=== PATIENT | female | born 1965 | race Caucasian/White ===

== ENCOUNTER → 2019-07-22 | Outpatient (CLI) | payer OTHER, SELFPAY ==
[2019-07-22 13:23] VITALS: BMI 28.1
[2019-07-27 13:33] LABS: HPV APTIMA, High Risk Negative (Negative)
== END | disposition home or self-care (01) ==
PROVIDERS: Family Provider Internal Medicine; PCP Internal Medicine; Referring Provider Nurse Practitioner Women's Health; Visit Provider Nurse Practitioner Women's Health
DX: Z12.4 Encounter for screening for malignant neoplasm of cervix (principal)
CPT/HCPCS: 87624; 88175; G0145

== ENCOUNTER → 2019-08-01 | Outpatient (CLI) | payer OTHER, SELFPAY ==
[2019-07-22 13:23] VITALS: BMI 28.1
--- NOTE | 2019-08-01 13:42 | US_ITS ---
STUDY: Pelvic ultrasound complete CLINICAL: Female, 53 years old. Menorrhagia TECHNIQUE: Transabdominal real-time exam with lowry scale image documentation. Transvaginal ultrasound was utilized for better visualization of the uterus and ovaries. COMPARISON: None. FINDINGS: The uterus is anteverted and midline measuring 8.2 x 5.4 x 5.1 cm. There are no endometrial or myometrial masses. Normal endometrial thickness measuring 12 mm. There are no endometrial masses, and there is no fluid in the endometrial cavity. The endometrium is hyperechoic. Normal uterine cervix. The right ovary is a 2.3 x 2.3 x 1.3 cm and contains a 10 x 9 mm dominant follicle. Normal Doppler flow. No additional right adnexal masses. The left ovary is 2.5 x 1.4 x 1.7 cm and contains a 20 x 15 x 12 mm simple cyst or large dominant follicle. Normal Doppler flow. No additional left adnexal masses. There is no free fluid in the pelvis. Unremarkable distended urinary bladder with a volume of 537 mL. Polycystic ovary disease: No. US/Pelvic (Non ) IMPRESSION: Normal uterus. Normal right ovary with a 10 x 9 mm dominant follicle. Normal Doppler flow. Normal size of the left ovary with a 20 x 15 x 12 mm simple cyst or large dominant follicle. Normal Doppler flow. No additional adnexal masses or free fluid. Electronically Signed: Rosa Mckinney MD at 16:11 EDT , Service support ,
--- NOTE | 2019-08-01 13:42 | US_ITS ---
STUDY: Pelvic ultrasound complete CLINICAL: Female, 53 years old. Menorrhagia TECHNIQUE: Transabdominal real-time exam with lowry scale image documentation. Transvaginal ultrasound was utilized for better visualization of the uterus and ovaries. COMPARISON: None. FINDINGS: The uterus is anteverted and midline measuring 8.2 x 5.4 x 5.1 cm. There are no endometrial or myometrial masses. Normal endometrial thickness measuring 12 mm. There are no endometrial masses, and there is no fluid in the endometrial cavity. The endometrium is hyperechoic. Normal uterine cervix. The right ovary is a 2.3 x 2.3 x 1.3 cm and contains a 10 x 9 mm dominant follicle. Normal Doppler flow. No additional right adnexal masses. The left ovary is 2.5 x 1.4 x 1.7 cm and contains a 20 x 15 x 12 mm simple cyst or large dominant follicle. Normal Doppler flow. No additional left adnexal masses. There is no free fluid in the pelvis. Unremarkable distended urinary bladder with a volume of 537 mL. Polycystic ovary disease: No. US/Transvaginal Non- IMPRESSION: Normal uterus. Normal right ovary with a 10 x 9 mm dominant follicle. Normal Doppler flow. Normal size of the left ovary with a 20 x 15 x 12 mm simple cyst or large dominant follicle. Normal Doppler flow. No additional adnexal masses or free fluid. Electronically Signed: Rosa Mckinney MD at 16:11 EDT , Service support ,
== END | disposition home or self-care (01) ==
PROVIDERS: Family Provider Internal Medicine; PCP Internal Medicine; Referring Provider Nurse Practitioner Women's Health; Visit Provider Nurse Practitioner Women's Health
DX: N92.0 Excessive and frequent menstruation with regular cycle (principal)
CPT/HCPCS: 76830; 76856; 93976

== ENCOUNTER 2020-07-10 13:33 | Emergency (ER) | payer OTHER, SELFPAY ==
[2019-07-22 13:23] VITALS: BMI 28.1
[2020-07-10 13:36] VITALS: BP 117/75; PULSE 80; RESP 16; TEMP 36.4; O2SAT 97; BMI 29.6
--- NOTE | 2020-07-10 13:42 | ED.VIS.GEN ---
History of Present Illness Chief Complaint: Seizure Narrative: 54-year-old female with past medical history of hypertension presents after an episode of syncope. She states she gave some blood today at the blood bank and walked across the street to get some groceries. W states that she stood in line for 10 minutes and just as she started to load her groceries onto the belt she started to feel lightheaded. She we will to walk over to a chair and sit down. At this point she asked for a drink of water and just before she could have it she lost consciousness reportedly about a minute. She had some mild shaking and bystanders thought that she had a seizure however she reports as soon as she opened her eyes she was alert and awake and asked for cell phone to call her . She remembers distinctly bystander saying we already called EMS as soon as she opened her eyes. She did not have any wounds. States that she did not fall or hit her head. She has some mild nausea but otherwise feels well. She states that she did eat a full meal prior to giving blood today. - Past Medical History (1) Hypertension Status: Chronic Past Medical History - Allergies and Home Meds Allergies/Adverse Reactions: Allergies No Known Allergies Allergy (Verified 07/22/19 13:11) Primary Care Physician: Fiona Castillo MD [Primary Care Provider] - Past Medical History: - - Hypertension Surgical History: noncontributory Lives: Spouse/ Significant Other Smoking Status: Never smoker Alcohol: None Drugs: None Review of Systems General: Reports: - - One episode of syncope. Denies: Chills, Fever, Sweats Eyes: Denies: Visual changes - bilaterally, Diplopia ENT: Denies: Rhinorrhea, Sore throat Cardiovascular: Denies: Chest pain, Palpitations Respiratory: Denies: Dyspnea, Cough, Dyspnea on exertion Gastrointestinal: Denies: Abdominal pain, Nausea, Vomiting, Diarrhea, Melena, Hematochezia Genitourinary: Denies: Dysuria, Hematuria, Frequency Musculoskeletal: Denies: Back pain, Extremity Pain Skin: Denies: Rash, Wounds Neurological: Denies: Headache, Weakness, Numbness Physical Exam Vital Signs/Narrative: Vital Signs Temp Pulse Resp BP Pulse Ox 07/10/20 13:36 97.5 F L 80 16 117/75 97 Inital Vital Signs reviewed: Yes General: Well nourished, Well developed, No Acute Distress Head: Normocephalic, Atraumatic Eyes: Perrl, EOMI ENT: Moist mucous membranes, No rhinorrhea Cardiovascular: Regular rate, Regular rhythm Respiratory: No distress, CTA bilaterally Abdomen: Soft, Nontender Back: Nontender, Normal Inspection Extremities: Nontender, No edema Skin: Normal color, No rash, Cyanosis Neurological: Alert, Oriented x3, Cranial nerves II-XII grossly intact Psychological: Normal affect, Normal Mood Diagnostic/Tx/Re-eval - Rhythm Strip Rhythm Strip: Sinus Rhythm Rate: 75 - EKG Initial EKG Interpretation: Sinus Rhythm, No Acute Injury Pattern - Medical Decision Making 54-year-old female presenting after episode of syncope which occurred earlier. She was given 500 mL of IV fluids well as Zofran and she felt improved. She was able to get up and ambulate around the room as well as bending over to off and put on her shoes without difficulty. She has no new symptoms of lightheadedness or dizziness. Her lab work shows that she is slightly anemic from her previous labs a couple of years ago. I suspect this is from giving blood today. I feel the patient is stable to be discharged home at this time and I have no concern for seizure. I did recommend she follow-up with her PCP for follow-up. If she has any new or worsening symptoms she is to return to the ED. Impression #1 anemia #2 syncope ED Disposition - Plan for ED Patient: Disposition: Home or Assisted Living Instructions: Causes of Syncope, Anemia Referrals: Fiona Castillo MD [Primary Care Provider] -
[2020-07-10 13:50] VITALS: BP 129/79
--- NOTE | 2020-07-10 13:53 | EKG12_ITS ---
Test Reason : Blood Pressure : / mmHG Vent. Rate : 075 BPM Atrial Rate : 075 BPM P-R Int : 134 ms QRS Dur : 078 ms QT Int : 360 ms P-R-T Axes : 032 029 038 degrees QTc Int : 402 ms Normal sinus rhythm with sinus arrhythmia Nonspecific ST and T wave abnormality Abnormal ECG Confirmed by PARVEEN TORO, JOMAR ([id number]), multimedia editor JAIME PEOPLES ([id number]) on 07/14/2020 11:30:40 AM Referred By: SYDNI Confirmed By:JOMAR SAINI MD
[2020-07-10] MEDS: Ondansetron 4 MG/2 ML Vial IV (14:35)
[2020-07-10 14:58] LABS: Absolute Lymphocyte Count 2.05 X10^3/uL (0.83-4.51); Absolute Neutrophil Count 6.5 X10^3/uL (2.0-7.7); Basophil# 0.02 X10^3/uL; Basophil% 0.2 % (0-1); Eosinophil# 0.07 X10^3/uL; Eosinophils% 0.8 % (0-5); Hematocrit 34.5 % (37-47); Hemoglobin 10.8 g/dL (12.0-15.0); Lymphocyte # 2.05 X10^3/ul (4.0); Mean Corp Hgb Conc 31.3 g/dL (32-36); Mean Corpuscular Hgb 25.6 pg (27.0-32.0); Mean Corpuscular Volume 81.8 fL (81-99); Mean Platelet Vol. 8.5 fl (6.2-12.0); Monocyte# 0.65 X10^3/uL; NRBC Flagged by Analyzer 0 % (0-5); Neutrophil % 69.8 % (47-70); Platelet Count 348 K/mm3 (150-450); RBC Distribution Width CV 14.4 % (11.6-14.6); RBC Distribution Width SD 42.8 fl (35.1-43.9); Red Blood Count 4.22 M/mm3 (4.2-5.4); White Blood Count 9.3 K/mm3 (4.4-11.0)
[2020-07-10 15:22] LABS: Anion Gap 4 (5-15); BUN 14 mg/dL (7-18); BUN/Creat Ratio 19.5 RATIO (10-20); Chloride 109 mmol/L (98-107); Creatinine, Serum 0.72 mg/dL (0.55-1.02); EST Glomerular Filtration Rate 90 mL/min (>60); Est Glom Filt Rate - Afr Amer 109 mL/min (>60); Estimated Creatinine Clearance 87.57 ml/min; Glucose 91 mg/dL (74-106); Potassium 4.2 mmol/L (3.5-5.1); Sodium Level 139 mmol/L (136-145)
[2020-07-10 15:57] VITALS: BP 140/94; PULSE 79; RESP 16; O2SAT 97
== END 2020-07-10 15:58 | disposition home or self-care (01) ==
PROVIDERS: Emergency Provider Student in an Organized Health Care Education/Training Program; PCP Internal Medicine
DX: R55 Syncope and collapse (principal); D64.9 Anemia, unspecified; I10 Essential (primary) hypertension; Z79.899 Other long term (current) drug therapy
CPT/HCPCS: 80048; 84484; 85025; 93005; 96361; 96374; 99285; J7030; J2405

== ENCOUNTER 2021-01-11 14:54 | Outpatient (RCR) | payer OTHER, SELFPAY ==
[2021-01-11] MEDS: COVID-19 VACC, MRNA(PFIZER)/PF 30 MCG/0.3 ML SYRINGE IM (17:23)
[2021-02-01] MEDS: COVID-19 VACC, MRNA(PFIZER)/PF 30 MCG/0.3 ML SYRINGE IM (17:05)
== END 2021-01-11 23:59 ==
LOC: IMMUN 14:54
PROVIDERS: PCP Internal Medicine; Referring Provider Family Medicine; Visit Provider Family Medicine
DX: Z23 Encounter for immunization (principal)
CPT/HCPCS: 0001A; 0002A; 91300

== ENCOUNTER 2023-10-01 16:54 | Emergency (ER) | payer OTHER, SELFPAY ==
[2023-10-01 16:55] VITALS: BP 141/99; PULSE 70; RESP 18; TEMP 35.7; O2SAT 95; BMI 30.6
--- NOTE | 2023-10-01 19:09 | EX.ED.DYSGE1 ---
HPI History of Present Illness Chief Complaint: Hypertension Informant: patient Narrative Narrative: Presents with concern for elevated blood pressure. Patient is a history of blood pressure. She takes her losartan. She has been taking this. She normally runs about 130?135 over 70s. This morning she woke up and when she first stood up she got just momentarily lightheaded. But this resolved. She is able to walk around. She is not vertiginous. No instability. No weakness. No stumbling. No dropping things. She also states that her stomach was just slightly upset. No chest pain. No trouble breathing. She has been eating and drinking fine. She is not having pain. She went to urgent care who recommended she come here because her systolic blood pressure was in the 170s. [facility] Medical History Hypertension Home Medications losartan 25 mg tablet 50 mg PO DAILY 07/22/19 [History Last Taken Unknown] Allergy/AdvReac Type Severity Reaction Status Date / Time No Known Allergies Allergy Verified 10/01/23 16:55 Family History Mother Hypertension Father Heart disease Social History Smoking Status: Never smoker alcohol intake: current details: occasionally substance use type: does not use caffeine: Yes what type of physical activity do you participate in: walking frequency: 3-4 times per week seatbelt use: always do you feel safe at home: Yes additional social history: [id number] at [employer] 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 Some specific details below. Constitutional: No recent fevers or chills. EYE: No discharge, visual complaints, or pain. ENT: No difficulty swallowing. No swelling. No pain. No reflux symptoms. CV: No chest pain palpitations. No syncope. She had transient lightheadedness when getting up quickly. Respiratory: Cough or trouble breathing. GI: No abdominal pain. Have mild indigestion in the epigastric area. But no nausea vomiting diarrhea. No blood in stool. Been eating and drinking normally. : No frequency dysuria or hematuria. Musculoskeletal: No recent trauma. No pains. No swelling. No back pain Skin: No rash. Nondiaphoretic. Neuro: No weakness or numbness. Endocrine: No polyuria or polydipsia. EXAM Physical Exam Narrative Exam Narrative: CONSTITUTIONAL: Patient is nontoxic in appearance. The patient looks comfortable. Work of breathing looks normal. HEENT: No notable trauma. Mucous membranes moist. No sinus tenderness. No indication of pain with swallowing. EYES: No conjunctival injection. No proptosis. Range of motion is normal. NECK:No JVD. No stridor. CARDIOVASCULAR: Regular rate. Regular rhythm. No notable murmur. No JVD. RESPIRATORY: No respiratory distress. Breathing is unlabored. No wheezes. No rhonchi. No rales. No pain with a deep breath. No chest wall tenderness. GASTROINTESTINAL: Not distended. Bowel sounds are normal. No tenderness loading none in the epigastric area but her symptoms are not really present now. No guarding. No rebound. No palpable mass. No bruit is heard. GENITOURINARY: No CVA tenderness. MUSCULOSKELETAL: Atraumatic. No peripheral edema. No cord. No tenderness along the deep venous system. No asymmetry. No distended veins. NEUROLOGICAL: Patient is alert and appropriate. No focal deficit noted. No discoordination. Speech is normal. SKIN: No noted rashes. No diaphoresis. PSYCHIATRIC: Patient is calm. Mood is appropriate. Const Vital Signs: 10/01/23 16:55 10/01/23 18:47 10/01/23 20:00 Temperature 96.3 F L Temperature Source Temporal Pulse Rate 70 Respiratory Rate 18 16 Respiratory Effort Normal Respiratory Pattern Normal Blood Pressure 141/99 H 172/100 H Blood Pressure Mean 113 124 Pulse Ox 95 97 Oxygen Delivery Method Room Air Room Air MDM MDM MDM Narrative Medical decision making narrative: Patient's electrolytes showed minimal elevation of chloride. Renal function is normal. No major abnormalities. Patient's blood pressure has been ranging anywhere from about 1 35-1 70 here. But none of this requires acute treatment. I think she is safe and appropriate for follow-up. She will keep track of some blood pressure and we will treat this based on the overall readings and she should follow-up with her primary. Lab Data Attestation: I reviewed the patient's lab results. Labs: Laboratory Results - last 24 hr 10/01/23 19:20 Sodium 140 Potassium 4.1 Chloride 108 H Carbon Dioxide 27.0 Anion Gap 5 BUN 10 Creatinine 0.72 Estim Creat Clear Calc 87.41 Est GFR (MDRD) Af Amer 107 Est GFR (MDRD) Non-Af 89 BUN/Creatinine Ratio 13.9 Glucose 94 Calcium 9.3 EKG Initial EKG: Comments: My independent interpretation of the EKG shows a normal sinus rhythm with overall rate of 61. No ventricular ectopy. No acute ST elevation or depression. CA interval, QRS duration and QTc are normal. Discharge Plan Triage Chief Complaint: Hypertension ED Provider: Rustam Jennings Dx/Rx/DC Orders Clinical Impression: Hypertension Instructions: ED Hypertension, Established Prescriptions: No Action losartan 25 mg tablet 50 mg PO DAILY Primary Care Provider: Fiona Castillo Referrals: Fiona Castillo MD [Primary Care Provider] - 3-5 Days Disposition Disposition: Home, Self Care
[2023-10-01 19:46] LABS: Anion Gap 5 (5-15); BUN 10 mg/dL (7-18); BUN/Creat Ratio 13.9 RATIO (10-20); Calcium,Total 9.3 mg/dL (8.5-10.1); Chloride 108 mmol/L (98-107); Creatinine, Serum 0.72 mg/dL (0.55-1.02); EST Glomerular Filtration Rate 89 mL/min (>60); Est Glom Filt Rate - Afr Amer 107 mL/min (>60); Estimated Creatinine Clearance 87.41 ml/min; Glucose 94 mg/dL (74-106); Potassium 4.1 mmol/L (3.5-5.1); Sodium Level 140 mmol/L (136-145)
[2023-10-01 20:00] VITALS: BP 172/100; RESP 16; O2SAT 97
== END 2023-10-01 21:41 | disposition home or self-care (01) ==
PROVIDERS: Emergency Provider Emergency Medicine; PCP Internal Medicine; Visit Provider Emergency Medicine
DX: I10 Essential (primary) hypertension (principal); Z79.899 Other long term (current) drug therapy
CPT/HCPCS: 80048; 93005; 99283; A4216

== ENCOUNTER → 2023-12-06 | Outpatient (CLI) | payer OTHER, SELFPAY ==
--- OUTSIDE RECORDS SUMMARY | 2023-12-06 20:04 | XMS RPT_ITS | CCD ---
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 Name Role Phone Fiona Rodriges MD Primary Care Provider [phone] PADILLA DIANNE Attending Unavailable GANTA, FIONA Primary Care Unavailable GANTA, FIONA Primary Care Unavailable GANTA, FIONA Attending Unavailable PADILLA, DIANNE Referring Unavailable BACKER, HINDU Referring Unavailable GANTA, FIONA Primary Care Unavailable MCGREAL, PIPPA Referring Unavailable GANTA, FIONA Primary Care Unavailable PADILLA, DIANNE Attending Unavailable GANTA, FIONA Primary Care Unavailable PADILLA, DIANNE Referring Unavailable PADILLA, DIANNE Attending Unavailable GANTA, FIONA Primary Care Unavailable Fiona Rodriges MD Primary Care Provider [phone] ATIF PEDROZA Attending Unavailable GANTA, FIONA Primary Care Unavailable GANTA, FIONA Primary Care Unavailable GANTA, FIONA Referring Unavailable GANTA, FIONA Primary Care Unavailable OLDER, ANNA Referring Unavailable GANTA, FIONA Primary Care Unavailable OLDER, ANNA Attending Unavailable GANTA, FIONA Primary Care Unavailable MAGDALENOPHRENE DELUNA Referring Unavailable GANTA, FIONA Primary Care Unavailable Allergies Allergy Classification Reported Allergen(s) Allergy Type Date of Onset Reaction(s) Facility (20 sources) Seasonal allergy; Translations: [SEASONAL ALLERGIES] Allergy to substance 7 Intolerance [facility] Work Phone: (20 sources) Bees; Translations: [BEES] Propensity to adverse reactions 6 Hives, Shortness of Breath [facility] Work Phone: (2 sources) [place] Propensity to adverse reactions 3 Anaphylaxis [facility] Medications Current Medications Medication Drug Class(es) Dates Sig (Normalized) Sig (Original) Calcium Carbonate-Vit D-Min (CALCIUM 1200 PO) (2 sources) Calcium Carbonate-Vit D-Min (CALCIUM 1200 PO) Take by mouth. 0 Active Multiple Vitamin (multivitamin) capsule (2 sources) take 1 capsule by mo ut once daily Multiple Vitamin (multivitamin) capsule Take 1 capsule by mouth daily. 0 Active Completed/Discontinued Medications Medication Drug Class(es) Dates Sig (Normalized) Sig (Original) Calcium Carbonate / vitamin D3 (20 sources) calcium carbonate/vitamin D3 (CALCIUM 500 + D ORAL) Take by mouth. 0 Active Problems Active Problems Problem Classification Problem Date Documented Date Episodic/Chronic Acquired foot deformities (1 source) Toe joint rigid; Translations: [Hallux rigidus, left foot] Chronic Conditions associated with dizziness or vertigo (4 sources) Dizzy spells; Translations: [Dizziness and giddiness] Onset: 10-04-2023 Episodic Essential hypertension (20 sources) Essential hypertension; Translations: [Essential (primary) hypertension] Onset: 10-30-2014 Chronic Immunizations and screening for infectious disease (3 sources) Suspected disease caused by 2019-nCoV; Translations: [Suspected COVID-19 virus infection] Episodic Osteoarthritis (4 sources) Osteoarthritis of first carpometacarpal joint of right hand; Translations: [Unilateral primary osteoarthritis of first carpometacarpal joint, right hand] Onset: 01-01-2023 Chronic Other connective tissue disease (2 sources) Pain in left foot; Translations: [Pain in left foot] Episodic Other connective tissue disease (2 sources) Pain of bilateral hands; Translations: [Pain in right hand] Episodic Other lower respiratory disease (1 source) Snoring; Translations: [Snoring] 10-04-2023 Episodic Other lower respiratory disease (1 source) Snoring; Translations: [Snoring] Onset: 10-11-2023 Episodic Other non-traumatic joint disorders (1 source) Chronic pain of right upper limb; Translations: [Pain in right shoulder] Episodic Other non-traumatic joint disorders (1 source) Pain in right hip joint; Translations: [Pain in right hip] Episodic Other non-traumatic joint disorders (1 source) Pain in left knee; Translations: [Pain in joint, lower leg] Episodic Other screening for suspected conditions (not mental disorders or infectious disease) (9 sources) Patient encounter status; Translations: [Encounter for screening mammogram for malignant neoplasm of breast] Onset: 06-11-2023 Episodic Other upper respiratory infections (2 sources) Pharyngitis; Translations: [Acute pharyngitis, unspecified] Episodic Prolapse of female genital organs (20 sources) Uterovaginal prolapse; Translations: [Uterovaginal prolapse, unspecified] Onset: 03-25-2015 03-25-2015 Chronic Residual codes; unclassified (1 source) Family history of diabetes mellitus; Translations: [Family history of diabetes mellitus] Episodic Past or Other Problems Problem Classification Problem Date Documented Da te Episodic/Chronic Other connective tissue disease (2 sources) Pain in right finger(s); Translations: [Pain in right finger(s)] Onset: 01-01-2023 Episodic Other connective tissue disease (2 sources) Pain in left finger(s); Translations: [Pain in left finger(s)] Onset: 01-01-2023 Episodic Other non-traumatic joint disorders (20 sources) Shoulder joint pain; Translations: [Pain in unspecified shoulder] Onset: 10-05-2014 10-05-2014 Episodic Other nutritional; endocrine; and metabolic disorders (20 sources) Weight gain; Translations: [Abnormal weight gain] Onset: 11-21-2019 11-21-2019 Episodic Results Test Name Value Interpretation Reference Range Facil ity Vital Signs Date Time Vital Sign Value Performing Clinician Coco boyle 10-04-2023 08:19-0500 Body weight 62.14 kg Anna Older YARDAGE TUFTING MACHINE OPERATOR.SEBASTIAN Work Phone: [facility] 10-04-2023 08:19-0500 Diastolic blood pressure 82 mm[Hg] Anna Older YARDAGE TUFTING MACHINE OPERATOR.SEBASTIAN Work Phone: [facility] 10-04-2023 08:19-0500 Heart rate 88 /min Anna Older YARDAGE TUFTING MACHINE OPERATOR.GUN BARREL FINISHER Work Phone: [facility] 10-04-2023 08:19-0500 Respiratory rate 16 /min Anna Older YARDAGE TUFTING MACHINE OPERATOR.SEBASTIAN Work Phone: [facility] 10-04-2023 08:19-0500 SaO2% (BldA) [Mass fraction] 99 % Anna Older YARDAGE TUFTING MACHINE OPERATOR.SEBASTIAN Work Phone: [facility] 10-04-2023 08:19-0500 Systolic blood pressure 128 mm[Hg] Anna Ferrari YARDAGE TUFTING MACHINE OPERATOR.GUN BARREL FINISHER Work Phone: [facility] 10-01-2023 16:34-0500 Diastolic blood pressure 100 mm[Hg] Maday Athy PA-C Work Phone: [facility] 10-01-2023 16:34-0500 Heart rate 76 /min Maday Athy PA-C Work Phone: [facility] 10-01-2023 16:34-0500 SaO2% (BldA) [Mass fraction] 97 % Maday Athy PA-C Work Phone: [facility] 10-01-2023 16:34-0500 Systolic blood pressure 172 mm[Hg] Maday Athy PA-C Work Phone: [facility] 07-06-2023 09:19-0400 Body height 147.3 cm Atif Pedroza MD Work Phone: [facility] 07-06-2023 09:19-0400 Body weight 61.6 kg Atif Pedroza MD Work Phone: [facility] 07-06-2023 09:19-0400 Diastolic blood pressure 86 mm[Hg] Atif Pedroza MD Work Phone: [facility] 07-06-2023 09:19-0400 Systolic blood pressure 142 mm[Hg] Atif Pedroza MD Work Phone: [facility] 07-05-2023 10:08-0400 Body temperature 97.2 [degF] Sherly Bennett YARDAGE TUFTING MACHINE OPERATOR.GUN BARREL FINISHER Work Phone: [facility] 07-05-2023 10:08-0400 Body weight 61.78 kg Sherly Bennett YARDAGE TUFTING MACHINE OPERATOR.GUN BARREL FINISHER Work Phone: [facility] 07-05-2023 10:08-0400 Diastolic blood pressure 88 mm[Hg] Sherly Bennett YARDAGE TUFTING MACHINE OPERATOR.GUN BARREL FINISHER Work Phone: [facility] 07-05-2023 10:08-0400 Heart rate 61 /min Sherly Bennett YARDAGE TUFTING MACHINE OPERATOR.GUN BARREL FINISHER Work Phone: [facility] 07-05-2023 10:08-0400 Respiratory rate 18 /min Sherly Bennett YARDAGE TUFTING MACHINE OPERATOR.GUN BARREL FINISHER Work Phone: [facility] 07-05-2023 10:08-0400 SaO2% (BldA) [Mass fraction] 98 % Sherly Bennett YARDAGE TUFTING MACHINE OPERATOR.GUN BARREL FINISHER Work Phone: [facility] 07-05-2023 10:08-0400 Systolic blood pressure 152 mm[Hg] Sherly Bennett YARDAGE TUFTING MACHINE OPERATOR.GUN BARREL FINISHER Work Phone: [facility] 11-13-2022 11:43-0500 Diastolic blood pressure 83 mm[Hg] Anna Older YARDAGE TUFTING MACHINE OPERATOR.GUN BARREL FINISHER Work Phone: [facility] 11-13-2022 11:43-0500 Systolic blood pressure 132 mm[Hg] Anna Older YARDAGE TUFTING MACHINE OPERATOR.GUN BARREL FINISHER Work Phone: [facility] 11-13-2022 11:00-0500 Body temperature 98.2 [degF] Anna Older YARDAGE TUFTING MACHINE OPERATOR.GUN BARREL FINISHER Work Phone: [facility] 11-13-2022 11:00-0500 Body weight 61.24 kg Anna Older YARDAGE TUFTING MACHINE OPERATOR.GUN BARREL FINISHER Work Phone: [facility] 11-13-2022 11:00-0500 Heart rate 76 /min Anna Older YARDAGE TUFTING MACHINE OPERATOR.GUN BARREL FINISHER Work Phone: [facility] 11-13-2022 11:00-0500 Respiratory rate 16 /min Anna Older YARDAGE TUFTING MACHINE OPERATOR.GUN BARREL FINISHER Work Phone: [facility] 11-13-2022 11:00-0500 SaO2% (BldA) [Mass fraction] 99 % Anna Older YARDAGE TUFTING MACHINE OPERATOR.GUN BARREL FINISHER Work Phone: [facility] 08-22-2022 16:28-0400 Body weight 60.33 kg Fiona Rodriges MD Work Phone: [facility] 08-22-2022 16:28-0400 Diastolic blood pressure 82 mm[Hg] Fiona Rodriges MD Work Phone: [facility] 08-22-2022 16:28-0400 Heart rate 65 /min Fiona Rodriges MD Work Phone: [facility] 08-22-2022 16:28-0400 SaO2% (BldA) [Mass fraction] 98 % Fiona Rodriges MD Work Phone: [facility] 08-22-2022 16:28-0400 Systolic blood pressure 124 mm[Hg] Fiona Rodriges MD Work Phone: [facility] 05-07-2022 12:51-0400 Body temperature 97 [degF] Sherly Bennett YARDAGE TUFTING MACHINE OPERATOR.GUN BARREL FINISHER Work Phone: [facility] 05-07-2022 12:51-0400 Body weight 60.33 kg Sherly Bennett YARDAGE TUFTING MACHINE OPERATOR.GUN BARREL FINISHER Work Phone: [facility] 05-07-2022 12:51-0400 Diastolic blood pressure 68 mm[Hg] Sherly Bennett YARDAGE TUFTING MACHINE OPERATOR.GUN BARREL FINISHER Work Phone: [facility] 05-07-2022 12:51-0400 Heart rate 94 /min Sherly Bennett YARDAGE TUFTING MACHINE OPERATOR.GUN BARREL FINISHER Work Phone: [facility] 05-07-2022 12:51-0400 Respiratory rate 16 /min Sherly Bennett YARDAGE TUFTING MACHINE OPERATOR.GUN BARREL FINISHER Work Phone: [facility] 05-07-2022 12:51-0400 SaO2% (BldA) [Mass fraction] 99 % Sherly Bennett YARDAGE TUFTING MACHINE OPERATOR.GUN BARREL FINISHER Work Phone: [facility] 05-07-2022 12:51-0400 Systolic blood pressure 108 mm[Hg] Sherly Bennett YARDAGE TUFTING MACHINE OPERATOR.GUN BARREL FINISHER Work Phone: [facility] 02-17-2022 16:16-0400 Body height 147.3 cm Fiona Rodriges MD Work Phone: [facility] 02-17-2022 16:16-0400 Body temperature 98.29 [degF] Fiona Rodriges MD Work Phone: [facility] 02-17-2022 16:16-0400 Body weight 59.42 kg Fiona Rodriges MD Work Phone: [facility] 02-17-2022 16:16-0400 Diastolic blood pressure 52 mm[Hg] Fiona Rodriges MD Work Phone: [facility] 02-17-2022 16:16-0400 Heart rate 83 /min Fiona Rodriges MD Work Phone: [facility] 02-17-2022 16:16-0400 Respiratory rate 12 /min Fiona Rodriges MD Work Phone: [facility] 02-17-2022 16:16-0400 SaO2% (BldA) [Mass fraction] 100 % Fiona Rodriges MD Work Phone: [facility] 02-17-2022 16:16-0400 Systolic blood pressure 98 mm[Hg] Fiona Rodriges MD Work Phone: [facility] Encounters Encounter Date Encounter Type Care Provider Facility Start: 10-11-2023 End: 10-13-2023 [facility] Facility:[facility] Start: 10-10-2023 [facility] Main Work Phone: Neurology Start: 10-04-2023 End: 10-05-2023 [facility] Facility:[facility] Start: 10-04-2023 Patient encounter procedure [facility] Start: 10-04-2023 End: 10-04-2023 Patient encounter procedure [facility] YARDAGE TUFTING MACHINE OPERATOR.GUN BARREL FINISHER Work Phone: Internal Medicine [place] Procedures Date Procedure Procedure Detail Performing Clinician Start: 07-05-2023 STREP A MOLECULAR (POC) Maday Loya PA-C Work Phone: Start: 06-11-2023 End: 06-11-2023 Mammography Bulk Order Provider Start: 05-23-2022 Radex foot complete minimum 3 views Viktor Dailey Work Phone: Start: 05-07-2022 STREP A MOLECULAR (POC) Sherly Bennett APRNLillyGUN BARREL FINISHER Work Phone: Start: 12-23-2021 Mammography Fiona jackson MD Work Phone: Start: 06-25-2019 Adult depression scr eening assessment Fiona Rodriges MD Work Phone: Start: 03-21-2019 Lipid 1996 panel - S patricia or Plasma Anna Older YARDAGE TUFTING MACHINE OPERATOR.GUN BARREL FINISHER Work Phone: Start: 05-18-2016 Colonoscopy Fiona jackson MD Work Phone: Plan of Treatment Date Care Activity Detail Author Start: 05-20-2031 DTaP/Tdap/Td Vaccine s (2 - Td or Tdap) DTaP/Tdap/Td Vaccines (2 - Td or Tdap) [facility] Start: 05-20-2031 Urine microalbumin profile [facility] Start: 05-18-2026 Colonoscopy COLONOSCOPY [facility] Start: 05-18-2026 COLORECTAL CANCER SCREENING COLORECTAL CANCER SCREENING [facility] Start: 05-18-2026 Screening for malign ant neoplasm of colon [facility] Start: 12-07-2025 HPV TESTING HPV TESTING [facility] Start: 12-07-2025 PAP TESTING PAP TESTING [facility] Start: 12-07-2025 Screening for malign ant neoplasm of cervix [facility] Start: 10-04-2024 Annual PCP Team Enamel Finisher taras Disease Visit Annual PCP Team Chronic Disease Visit [facility] Start: 06-11-2024 Mammography [facility] Start: 06-11-2024 Screening for malign ant neoplasm of breast Mammogram Screening [facility] Start: 03-21-2024 Lipid 1996 panel - S patricia or Plasma Lipid Screening [facility] Start: 03-21-2024 Lipid panel Lipid Screening [facility] Start: 03-21-2024 LIPID SCREEN LIPID SCREEN [facility] Start: 11-13-2023 ANNUAL PCP TEAM FILLER SHREDDER HELPER TARAS DISEASE VISIT ANNUAL PCP TEAM CHRONIC DISEASE VISIT [facility] Start: 11-13-2023 HEPATITIS C SCREENING HEPATITIS C OR ILEANA [facility] Immunizations Immunization Date Immunization Notes Care Provider Jignesh blankenship 09-12-2022 influenza, injectabl e, quadrivalent, contains preservative Anna Older YARDAGE TUFTING MACHINE OPERATOR.GUN BARREL FINISHER Work Phone: [facility] 09-12-2022 influenza virus vaccine, unspecified formulation Anna Older YARDAGE TUFTING MACHINE OPERATOR.GUN BARREL FINISHER Work Phone: [facility] 05-16-2022 zoster vaccine recombinant Fiona Rodriges MD Work Phone: [facility] 03-10-2022 zoster vaccine recombinant Fiona Rodriges MD Work Phone: [facility] 05-20-2021 tetanus toxoid, redu godwin diphtheria toxoid, and acellular pertussis vaccine, adsorbed Fiona Rodriges MD Work Phone: [facility] Work Phone: 02-01-2021 COVID-19 vaccine, ag e 12+ yr (PFIZER-BIONTECH - PURPLE TOP) Fiona Rodriges MD Work Phone: [facility] Work Phone: 01-11-2021 COVID-19 vaccine, ag e 12+ yr (PFIZER-BIONTECH - PURPLE TOP) Fiona Rodriges MD Work Phone: [facility] Work Phone: 11-21-2019 tetanus and diphther ia toxoids, adsorbed, preservative free, for adult use (5 Lf of tetanus toxoid and 2 Lf of diphtheria toxoid) Fiona Rodriges MD Work Phone: [facility] Work Phone: 09-02-2018 influenza, injectabl e, quadrivalent, contains preservative Fiona Rodriges MD Work Phone: [facility] Work Phone: 08-17-2014 influenza virus vaccine, unspecified formulation Fiona Rodriges MD Work Phone: [facility] 08-12-2009 influenza virus vaccine, unspecified formulation Fiona Rodriges MD Work Phone: [facility] 01-31-2006 tetanus and diphther ia toxoids, adsorbed, preservative free, for adult use (2 Lf of tetanus toxoid and 2 Lf of diphtheria toxoid) Fiona Rodriges MD Work Phone: [facility] 09-13-2005 influenza virus vaccine, unspecified formulation Fiona Rodriges MD Work Phone: [facility] Work Phone: Payers Date Payer Category Payer Private Health Insurance xxx [id number] 2011 Private Health Insurance [id number] 2011 Private Health Insurance [id number] Social History Date Type Detail Facility Start: 12-17-2012 End: 01-01-2023 Tobacco smoking status NHIS Never smoked tobacco [facility] Work Phone: Start: 02-17-2022 End: 10-04-2023 Alcohol intake Current non-drinker of alcohol (finding) [facility] Start: 09-30-2020 History SDOH Alcohol Frequency 1 [facility] Start: 09-30-2020 History SDOH Alcohol Std Drinks 98 [facility] Start: 09-30-2020 History SDOH Social Connections Phone 5 [facility] Start: 09-30-2020 History SDOH Social Connections Get Together 3 [facility] Start: 07-13-2020 History SDOH Physica l Activity DPW 6 [facility] Start: 09-30-2020 History SDOH Physica l Activity MPS 4 [facility] Start: 09-30-2020 History SDOH Transpo rt Med 2 [facility] Start: 07-13-2020 Education 18 [facility] Start: 1965 Sex Assigned At Female [facility] Start: 02-07-2022 End: 01-12-2023 Exposure to SARS-CoV-2 (event) Not sure [facility] Work Phone: Start: 04-26-2022 End: 05-06-2022 Exposure to SARS-CoV-2 (event) Yes [facility] Work Phone: Start: 12-17-2012 End: 01-01-2023 Tobacco use and exposure Smokeless tobacco non-user [facility] Work Phone: Start: 1965 Sex Assigned At Not on file S [facility] Start: 03-22-2023 End: 06-11-2023 History of Social function [facility] Start: 03-22-2023 End: 06-11-2023 Tobacco use panel [facility] Are you now , , , , never or living with a partner? [facility] How often to you hav e a drink containing alcohol? Never [facility] How many standard dr inks containing alcohol do you have on a typical day? Patient refused [facility] Do you feel stress - tense, restless, nervous, or anxious, or unable to sleep at night because your mind is troubled all the time - these days [OSQ] Not at all [facility] (I/We) worried wheth er (my/our) food would run out before (I/we) got money to buy more. Never true [facility] Work Phone: In the past 12 month s, was there a time when you were not able to pay the mortgage or rent on time? No [facility] Start: 09-30-2020 Gender identity Identifies as female gender (finding) [facility] Clinical Notes 05-18-2016 to 10-15-2023 Ruthie Coulter - 10/15/2023 2:21 PM Shukri Cantrell MD - 10/11/2023 9:43 AM Brijesh Donis - 10/10/2023 7:02 PM Brijesh Donis - 10/10/2023 7:01 PM ESTPatient Instructions Note Date & Type Note Facility 10-15-2023 Note HNO ID: [id number] Author: Ruthie Coulter Service: ? Author Type: ? Type: Progress Notes Filed: 10/15/2023 2:21 PM Note Text: Sleep Study Check-In Documentation Date: October 15, 2023 Name: Blank Bedoya Comments: HST was returned in working order with all sleep questionnaires Ruthie Coulter [facility] 10-15-2023 History of Presen t illness Narrative Sleep Study Check-In Documentation Date: October 15, 2023 Name: Blank Bedoya Comments: HST was returned in working order with all sleep questionnaires Ruthie Coulter October 11, 2023 Standing PSG Orders signed in the last 90 days None Future PSG Orders signed in the last 90 days Ordered Auth. provider HOME SLEEP APNEA TEST (HSAT) [[id number]] 10/04/23 Anna Ferrari APRN.GUN BARREL FINISHER Assoc. diagnoses: Essential hypertension [I10], Snoring [R06.83] Q: Indications: A: Obstructive sleep apnea Q: STOP-BANG conditions - Select All That Apply: A: AGE > 50 A2: high blood PRESSURE A3: SNORING that is loud or disruptive A4: TIREDNESS, fatigue or sleepiness during the day Q: Current use of supplemental oxygen during sleep period?: A: No All Prior Sleep Studies (past 365 days) Some values may be hidden. Unless noted otherwise, only the newest values recorded on each date are displayed. Sleep Studies HOME SLEEP APNEA TEST (HSAT) Future Expected: Expires: 10/03/24 BMI Readings from Last 2 Encounters: 10/04/23 : 28.63 kg/m 07/06/23 : 28.38 kg/m PAST MEDICAL HISTORY Diagnosis Date Dysphonia 05/29/2019 HTN (hypertension) The medical record was reviewed to determine if the proposed sleep study conforms to the AASM Practice Parameters for the Indications for Polysomnography and Related Procedures, or if the sleep study is indicated for other reasons. Indications for study: CRISTÓBAL suspected without comorbid medical or sleep disorders Sleep study to be performed: Home Sleep Apnea Test (HSAT) Special instructions: None-follow laboratory protocol Kierra Lázaro - Sleep Medicine Staff Note: I have read the above protocol, edited as needed, and agree to the plan. Shukri Dias MD 2:56 PM, 10/12/2023 Nomad# [id number] , Date shipped out: 10/11/23 SENT FEDEX DELIVERY - FEDEX RETURN Tracking mailout: [id number] Tracking return: [phone] October 10, 2023 An order has been received for Home Sleep Apnea Test (HSAT) from Anna Wilkinson a B. [facility] Staff. Visit prep complete. Comments :No The sleep study is scheduled for 10/12/23. Insurance: Payor: AETNA / Plan: AETNA POS / Product Type: POS / Payer/Plan Subscr Sex Relation Sub. Ins. ID Effective Group Num 1. AETNA - AETNA* BLANK BEDOYA I 1965 Female Self [id number] 10/29[birth year]20 [id number] [id number] Brijesh Hu documented in this encounter [facility] 10-11-2023 Note HNO ID: [id number] Author: Shukri Dias MD Service: ? Author Type: Physician Type: Progress Notes Filed: 10/15/2023 2:21 PM Note Text: October 11, 2023 Standing PSG Orders signed in the last 90 days None Future PSG Orders signed in the last 90 days Ordered Auth. provider HOME SLEEP APNEA TEST (HSAT) [[id number]] 10/04/23 Anna Ferrari APRN.GUN BARREL FINISHER Assoc. diagnoses: Essential hypertension [I10], Snoring [R06.83] Q: Indications: A: Obstructive sleep apnea Q: STOP-BANG conditions - Select All That Apply: A: AGE > 50 A2: high blood PRESSURE A3: SNORING that is loud or disruptive A4: TIREDNESS, fatigue or sleepiness during the day Q: Current use of supplemental oxygen during sleep period?: A: No All Prior Sleep Studies (past 365 days) Some values may be hidden. Unless noted otherwise, only the newest values recorded on each date are displayed. Sleep Studies HOME SLEEP APNEA TEST (HSAT) Future Expected: Expires: 10/03/24 BMI Readings from Last 2 Encounters: 10/04/23 : 28.63 kg/m? 07/06/23 : 28.38 kg/m? PAST MEDICAL HISTORY Diagnosis Date Dysphonia 05/29/2019 HTN (hypertension) The medical record was reviewed to determine if the proposed sleep study conforms to the AASM Practice Parameters for the Indications for Polysomnography and Related Procedures, or if the sleep study is indicated for other reasons. Indications for study: CRISTÓBAL suspected without comorbid medical or sleep disorders Sleep study to be performed: Home Sleep Apnea Test (HSAT) Special instructions: None-follow laboratory protocol Kierra Paka - Sleep Medicine Staff Note: I have read the above protocol, edited as needed, and agree to the plan. Shukri Dias MD 2:56 PM, 10/12/2023 [facility] 10-10-2023 Note HNO ID: [id number] Author: Brijesh Hu Service: ? Author Type: ? Type: Progress Notes Filed: 10/15/2023 2:21 PM Note Text: Nomad# [id number] , Date shipped out: 10/11/23 SENT FEDEX DELIVERY - FEDEX RETURN Tracking mailout: [id number] Tracking return: [id number] [facility] 10-10-2023 Note HNO ID: [id number] Author: Brijesh Hu Service: ? Author Type: ? Type: Progress Notes Filed: 10/15/2023 2:21 PM Note Text: October 10, 2023 An order has been received for Home Sleep Apnea Test (HSAT) from Anna Wilkinson a B. [facility] Staff. Visit prep complete. Comments :No The sleep study is scheduled for 10/12/23. Insurance: Payor: AETNA / Plan: AETNA POS / Product Type: POS / Payer/Plan Subscr Sex Relation Sub. Ins. ID Effective Group Num 1. AETNA - AETNA* BLANK BEDOYA Camille 1965 Female Self [id number] [birth year]20 [id number] [id number] Brijesh Hu [facility] 10-04-2023 Note HNO ID: [id number] Author: Anna Ferrari APRN.GUN BARREL FINISHER Service: ? Author Type: Nurse Practitioner Type: Progress Notes Filed: 10/04/2023 12:58 PM Note Text: CC: Patient presents with: Acute Visit: BP issues HPI Blank Bedoya is a 57 year old female who presents today for routine follow up but had recent ER visit for dizziness. Facility: [facility] Date of visit: 10/01/23 Reason for visit: sudden dizziness and elevated BP at [facility] course: BMP unremarkable, EKG showing NSR. Diagnosis: hypertension Discharge: follow up with PCP, no med changes. Current symptoms: Still with intermittent dizziness with moving head forward or back self resolving. Has a history of vertigo so has been doing hem radha maneuvers which are improving her dizziness. HTN: Ms. Bedoya indicates that she is feeling well and denies any symptoms referable to elevated blood pressure. Specifically denies headache, chest pain, palpitations, dyspnea, and peripheral edema. Patient denies any side effects of her medication(s) and is compliant with their regimen. She does check BP's away from this office with average BP's in the 120s-150s/50s-90s range. Blank works out regularly 7 times per week with walking. She watches her diet for sodium, low fat and low cholesterol most of the time. Last 3 Encounter BP Readings: Date: BP: 10/04/2023 128/82 10/01/2023 172/100 07/06/2023 142/86 Does snore and wakes up tired. Has been told by dentist she might have mild sleep apnea. REVIEW OF SYSTEMS General: no fevers, no chills, no night sweats, no recurrent infections, no change in appetite, no change in energy, and no significant changes in weight Respiratory: no cough, no wheezing, no shortness of breath, no hemoptysis Cardiovascular: no chest pain, no chest pressure, no palpitations, and no swelling Neurologic: No headache, weakness, numbness, memory loss, syncope. PAST MEDICAL HISTORY Diagnosis Date Dysphonia 05/29/2019 HTN (hypertension) PAST SURGICAL HISTORY Procedure Laterality Date COLONOSCOPY SCREENING 2015 NONE ALLERGIES Bees and Seasonal Allergies MEDICATIONS losartan (COZAAR) 25 mg tablet Take 1 tablet by mouth once daily. calcium carbonate/vitamin D3 (CALCIUM 500 + D ORAL) Take by mouth. FAMILY HISTORY Problem Relation Age of Onset Cancer Mother ?ovarian ca Hypertension Mother Lipids Mother High Cholesterol, Resolved Osteoporosis Mother Diabetes Mother other (Rheumatoid Arthritis) Mother Heart Father [place] Social History Tobacco Use Smoking status: Never Smokeless tobacco: Never Vaping Use Vaping Use: Never used Substance Use Topics Alcohol use: No Drug use: No PHYSICAL EXAM BP 128/82 Pulse 88 Resp 16 Wt 62.1 kg (137 lb) LMP 09/28/2020 SpO2 99% BMI 28.63 kg/m? General Appearance: well appearing, in no acute distress, alert Pysch: mood and affect broad and appropriate Skin: Skin color, texture, turgor normal for age; Eyes: conjunctiva pink and moist, no icterus, sclera white, non-injected Lungs: Lungs clear to auscultation. No wheezing, rhonchi, rales. Heart: RRR without murmur, gallop, or rubs. No ectopy BP Controlled (<130/80) Never done Diabetes Screening due on 03/21/2022 Covid-19 Vaccine() due on 06/29/2023 Hepatitis C Screening due on 11/13/2023 HIV Screening due on 11/13/2023 Annual PCP Team Chronic Disease Visit due on 11/13/2023 Lipid Screening due on 03/21/2024 Mammogram Screening due on 06/11/2024 Pap Testing due on 12/07/2025 HPV Testing due on 12/07/2025 Colorectal Cancer Screening due on 05/18/2026 DTaP,Tdap,Td Vaccine(2 - Td or Tdap) due on 05/20/2031 Influenza Vaccine Completed Depression Assessment Completed Shingrix Vaccine Completed Hepatitis B Vaccine Discontinued DATA REVIEWED: Outside chart from [facility] reviewed. ASSESSMENT/PLAN: 1. Essential hypertension - ICD9: 401.9, ICD10: I10 (primary diagnosis) - Controlled in office but varying blood pressures at home. Follow up in 6 weeks and bring home BP cuff with you. - Continue current medications - Recommend home blood pressure monitoring, to bring results to next visit - Encouraged sodium restriction, DASH or Mediterranean diet - Recommend regular aerobic exercise - CBC + DIFF - TSH BLD - T4 FREE/FREE THYROX - HOME SLEEP APNEA TEST (HSAT) 2. Dizzy spells - ICD9: 780.4, ICD10: R42 - resolving with home radha maneuver, most likely PV - continue with exercises and follow up if this does not continue to improve. 3. Snoring - ICD9: 786.09, ICD10: R06.83 - not been evaluated by sleep study yet - HOME SLEEP APNEA TEST (HSAT) 4. Annual physical exam - ICD9: V70.0, ICD10: Z00.00 - not reviewed. Labs ordered to be reviewed at follow up appointment. - CBC + DIFF - LIPID PANEL BASIC - COMP METABOLIC PANEL 5. Lipid screening - ICD9: V77.91, ICD10: Z13.220 - LIPID PANEL BASIC - COMP METABOLIC P (more content not included)... [facility] 10-04-2023 Instructions Anna Ferrari APRN.CNP - 10/04/2023 8:52 AM EST Bring Home blood pressure kit with you to next appointment. documented in this encounter [facility] 10-04-2023 History of Presen t illness Narrative CC: Patient presents with: Acute Visit: BP issues HPI Blank Bedoya is a 57 year old female who presents today for routine follow up but had recent ER visit for dizziness. Facility: [facility] Date of visit: 10/01/23 Reason for visit: sudden dizziness and elevated BP at [facility] course: BMP unremarkable, EKG showing NSR. Diagnosis: hypertension Discharge: follow up with PCP, no med changes. Current symptoms: Still with intermittent dizziness with moving head forward or back self resolving. Has a history of vertigo so has been doing hem radha maneuvers which are improving her dizziness. HTN: Ms. Bedoya indicates that she is feeling well and denies any symptoms referable to elevated blood pressure. Specifically denies headache, chest pain, palpitations, dyspnea, and peripheral edema. Patient denies any side effects of her medication(s) and is compliant with their regimen. She does check BP's away from this office with average BP's in the 120s-150s/50s-90s range. Blank works out regularly 7 times per week with walking. She watches her diet for sodium, low fat and low cholesterol most of the time. Last 3 Encounter BP Readings: Date: BP: 10/04/2023 128/82 10/01/2023 172/100 07/06/2023 142/86 Does snore and wakes up tired. Has been told by dentist she might have mild sleep apnea. REVIEW OF SYSTEMS General: no fevers, no chills, no night sweats, no recurrent infections, no change in appetite, no change in energy, and no significant changes in weight Respiratory: no cough, no wheezing, no shortness of breath, no hemoptysis Cardiovascular: no chest pain, no chest pressure, no palpitations, and no swelling Neurologic: No headache, weakness, numbness, memory loss, syncope. PAST MEDICAL HISTORY Diagnosis Date Dysphonia 05/29/2019 HTN (hypertension) PAST SURGICAL HISTORY Procedure Laterality Date COLONOSCOPY SCREENING 2015 NONE ALLERGIES Bees and Seasonal Allergies MEDICATIONS losartan (COZAAR) 25 mg tablet Take 1 tablet by mouth once daily. calcium carbonate/vitamin D3 (CALCIUM 500 + D ORAL) Take by mouth. FAMILY HISTORY Problem Relation Age of Onset Cancer Mother ?ovarian ca Hypertension Mother Lipids Mother High Cholesterol, Resolved Osteoporosis Mother Diabetes Mother other (Rheumatoid Arthritis) Mother Heart Father [place] Social History Tobacco Use Smoking status: Never Smokeless tobacco: Never Vaping Use Vaping Use: Never used Substance Use Topics Alcohol use: No Drug use: No PHYSICAL EXAM BP 128/82 Pulse 88 Resp 16 Wt 62.1 kg (137 lb) LMP 09/28/2020 SpO2 99% BMI 28.63 kg/m General Appearance: well appearing, in no acute distress, alert Pysch: mood and affect broad and appropriate Skin: Skin color, texture, turgor normal for age; Eyes: conjunctiva pink and moist, no icterus, sclera white, non-injected Lungs: Lungs clear to auscultation. No wheezing, rhonchi, rales. Heart: RRR without murmur, gallop, or rubs. No ectopy BP Controlled (<130/80) Never done Diabetes Screening due on 03/21/2022 Covid-19 Vaccine() due on 06/29/2023 Hepatitis C Screening due on 11/13/2023 HIV Screening due on 11/13/2023 Annual PCP Team Chronic Disease Visit due on 11/13/2023 Lipid Screening due on 03/21/2024 Mammogram Screening due on 06/11/2024 Pap Testing due on 12/07/2025 HPV Testing due on 12/07/2025 Colorectal Cancer Screening due on 05/18/2026 DTaP,Tdap,Td Vaccine(2 - Td or Tdap) due on 05/20/2031 Influenza Vaccine Completed Depression Assessment Completed Shingrix Vaccine Completed Hepatitis B Vaccine Discontinued DATA REVIEWED: Outside chart from [facility] reviewed. ASSESSMENT/PLAN: 1. Essential hypertension - ICD9: 401.9, ICD10: I10 (primary diagnosis) - Controlled in office but varying blood pressures at home. Follow up in 6 weeks and bring home BP cuff with you. - Continue current medications - Recommend home blood pressure monitoring, to bring results to next visit - Encouraged sodium restriction, DASH or Mediterranean diet - Recommend regular aerobic exercise - CBC + DIFF - TSH BLD - T4 FREE/FREE THYROX - HOME SLEEP APNEA TEST (HSAT) 2. Dizzy spells - ICD9: 780.4, ICD10: R42 - resolving with home radha maneuver, most likely PV - continue with exercises and follow up if this does not continue to improve. 3. Snoring - ICD9: 786.09, ICD10: R06.83 - not been evaluated by sleep study yet - HOME SLEEP APNEA TEST (HSAT) 4. Annual physical exam - ICD9: V70.0, ICD10: Z00.00 - not reviewed. Labs ordered to be reviewed at follow up appointment. - CBC + DIFF - LIPID PANEL BASIC - COMP METABOLIC PANEL 5. Lipid screening - ICD9: V77.91, ICD10: Z13.220 - LIPID PANEL BASIC - COMP METABOLIC PANEL Prescription instructions reviewed with patient as applicable. Potential red flag symptoms discussed with the patient. Reviewed appropriate action plan to take if red flag symptoms occur. Patient agreeable to treatment plan. Anna Ferrari APRN.CNP documented in this encounter [facility] 10-01-2023 Note HNO ID: [id number] Author: Maday Loya PA-C Service: ? Author Type: Physician [place] Porter Type: Progress Notes Filed: 10/01/2023 4:35 PM Note Text: Presents to express care triage with a chief complaint of dizziness. She states this started around noon today. She had checked her blood pressure and systolic was 150. She states she continues to feel lightheaded like she may pass out. Denies chest pain or shortness of breath. No significant headache. Discussed for this complaint would recommend she be seen in the emergency department. Recommended [facility]. Declined squad transport. [facility] 10-01-2023 History of Presen t illness Narrative Presents to express care triage with a chief complaint of dizziness. She states this started around noon today. She had checked her blood pressure and systolic was 150. She states she continues to feel lightheaded like she may pass out. Denies chest pain or shortness of breath. No significant headache. Discussed for this complaint would recommend she be seen in the emergency department. Recommended [facility]. Declined squad transport. documented in this encounter [facility] 08-15-2023 Miscellaneous Notes Last office visit: 11/13/22 Next appointment scheduled: No future appointments scheduled at this time. Patient phones requesting refills as follows: Requested Prescriptions Pending Prescriptions Disp Refills losartan (COZAAR) 25 mg tablet 90 tablet 0 Sig: Take 1 tablet by mouth once daily. Please review and advise. Ginny Franco LPN documented in this encounter [facility] 07-06-2023 Note HNO ID: [id number] Author: Atif Pedroza MD Service: ? Author Type: Physician Type: Progress Notes Filed: 07/06/2023 9:56 AM Note Text: Insulation Cupola Operator offered: Patient declines. Blank is a 57 year old who presents for an annual gynecologic exam. She notices some menopausal changes related to weight and sleep. Patient [place] with hot flashes. Postmenopausal: Yes since age 56 HRT use: No. Last Pap: 12/17/2020 normal HPV: 12/10/2020 negative History of abnormal pap: No Last mammogram: 2022 normal OB History T2 L2 SAB0 IAB0 Ectopic0 Multiple0 Live Births0 Comment: 2 vaginal deliveries [place] History LMP: 09/28/2020, Postmenopausal Age at Menarche: Age at First : Age at Menopause: [place] History Comments: Sexual Activity: Yes; Male; has had vasectomy Contraception: No contraception data on record PAST MEDICAL HISTORY Diagnosis Date Dysphonia 05/29/2019 HTN (hypertension) PAST SURGICAL HISTORY Procedure Laterality Date COLONOSCOPY SCREENING 2015 NONE FAMILY HISTORY Problem Relation Age of Onset Cancer Mother ?ovarian ca Hypertension Mother Lipids Mother High Cholesterol, Resolved Osteoporosis Mother Diabetes Mother other (Rheumatoid Arthritis) Mother Heart Father [place] SOCIAL HISTORY Social History Tobacco Use Smoking status: Never Smokeless tobacco: Never Vaping Use Vaping Use: Never used Substance Use Topics Alcohol use: No Drug use: No REVIEW OF SYSTEMS Abdomen: No abdominal pain, nausea, vomiting, diarrhea, or constipation. No bloating, early satiety, indigestion, or increased flatulence. Bladder: some ROLANDO Breast: No breast lumps, nipple d/c, overlying skin changes, redness or skin retraction Allergies and current medication updated:Yes EXAM: BP 142/86 Ht 4' 10 (1.47m) Wt 135 lb 12.8 oz (61.6kg) LMP 09/28/2020 BMI 28.39 kg/(m2). GENERAL: pleasant, female in no apparent distress BREAST: soft, non-tender, symmetric, no dominant mass, normal nipple-areolar complex, no lymphadenopathy, and no nipple discharge CHEST: Normal inspiratory effort ABDOMEN: soft, non-tender, and no masses PELVIC: external genitalia normal, no vulvar lesions, no cervical lesions, normal appearing perineal body and perianal region; uterovaginal prolapse BIMANUAL: uterus normal size, shape and consistency, no adnexal masses, and non-tender RECTOVAGINAL: rectovaginal exam negative for any masses or nodularity. NEURO: alert and oriented x3,exam grossly non-focal EXTREMITIES: normal ASSESSMENT/PLAN: 1) Health maintenance: Pap/HPV up to date. Mammogram up to date Nutrition, exercise and routine health maintenance exams reviewed. Colon cancer screening: up to date with screening 2) Follow up one year or sooner as needed Atif Pedroza MD [facility] 07-06-2023 History of Presen t illness Narrative Insulation Cupola Operator offered: Patient declines. Blank is a 57 year old who presents for an annual gynecologic exam. She notices some menopausal changes related to weight and sleep. Patient [place] with hot flashes. Postmenopausal: Yes since age 56 HRT use: No. Last Pap: 12/17/2020 normal HPV: 12/10/2020 negative History of abnormal pap: No Last mammogram: 2022 normal OB History T2 L2 SAB0 IAB0 Ectopic0 Multiple0 Live Births0 Comment: 2 vaginal deliveries [place] History LMP: 09/28/2020, Postmenopausal Age at Menarche: Age at First : Age at Menopause: [place] History Comments: Sexual Activity: Yes; Male; has had vasectomy Contraception: No contraception data on record PAST MEDICAL HISTORY Diagnosis Date Dysphonia 05/29/2019 HTN (hypertension) PAST SURGICAL HISTORY Procedure Laterality Date COLONOSCOPY SCREENING 2015 NONE FAMILY HISTORY Problem Relation Age of Onset Cancer Mother ?ovarian ca Hypertension Mother Lipids Mother High Cholesterol, Resolved Osteoporosis Mother Diabetes Mother other (Rheumatoid Arthritis) Mother Heart Father SD SOCIAL HISTORY Social History Tobacco Use Smoking status: Never Smokeless tobacco: Never Vaping Use Vaping Use: Never used Substance Use Topics Alcohol use: No Drug use: No REVIEW OF SYSTEMS Abdomen: No abdominal pain, nausea, vomiting, diarrhea, or constipation. No bloating, early satiety, indigestion, or increased flatulence. Bladder: some ROLANDO Breast: No breast lumps, nipple d/c, overlying skin changes, redness or skin retraction Allergies and current medication updated:Yes EXAM: BP 142/86 Ht 4' 10 (1.47m) Wt 135 lb 12.8 oz (61.6kg) LMP 09/28/2020 BMI 28.39 kg/(m^2). GENERAL: pleasant, female in no apparent distress BREAST: soft, non-tender, symmetric, no dominant mass, normal nipple-areolar complex, no lymphadenopathy, and no nipple discharge CHEST: Normal inspiratory effort ABDOMEN: soft, non-tender, and no masses PELVIC: external genitalia normal, no vulvar lesions, no cervical lesions, normal appearing perineal body and perianal region; uterovaginal prolapse BIMANUAL: uterus normal size, shape and consistency, no adnexal masses, and non-tender RECTOVAGINAL: rectovaginal exam negative for any masses or nodularity. NEURO: alert and oriented x3,exam grossly non-focal EXTREMITIES: normal ASSESSMENT/PLAN: 1) Health maintenance: Pap/HPV up to date. Mammogram up to date Nutrition, exercise and routine health maintenance exams reviewed. Colon cancer screening: up to date with screening 2) Follow up one year or sooner as needed Atif Pedroza MD documented in this encounter [facility] 07-05-2023 Note HNO ID: [id number] Author: Sherly Bennett APRN.GUN BARREL FINISHER Service: ? Author Type: Nurse Practitioner Type: Progress Notes Filed: 07/05/2023 10:46 AM Note Text: This note was created using [email or web address]. Subjective Blank Bedoya is a 57 year old female. 57 year old female with PMH HTN presents for complaints of illness. Acute onset 3 days ago Started with post nasal drainage. Slight cough +sore throat +popping in ears +eye watering. Denies new fatigue Denies N/V/D + ill contacts Endorses she took a home COVID yesterday that was negative. Home COVID today was negative as well. 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 Presents worried related to strep throat. The history is provided by the patient. No speech/language therapist was used. Sore Throat This is a new problem. The current episode started in the past 7 days. The problem has been unchanged. Neither side of throat is experiencing more pain than the other. There has been no fever. The pain is at a severity of 6/10. The pain is moderate. Associated symptoms include coughing and ear pain. Pertinent negatives include no abdominal pain, congestion, diarrhea, drooling, ear discharge, headaches, hoarse voice, plugged ear sensation, neck pain, shortness of breath, stridor, swollen glands, trouble swallowing or vomiting. She has had exposure to strep. She has had no exposure to mono. She has tried nothing for the symptoms. The treatment provided no relief. PAST MEDICAL HISTORY Diagnosis Date Dysphonia 05/29/2019 HTN (hypertension) PAST SURGICAL HISTORY Procedure Laterality Date COLONOSCOPY SCREENING 2015 NONE ALLERGIES Bees and Seasonal Allergies MEDICATIONS losartan (COZAAR) 25 mg tablet Take 1 tablet by mouth once daily. calcium carbonate/vitamin D3 (CALCIUM 500 + D ORAL) Take by mouth. cyanocobalamin (VITAMIN B-12) 1,000 mcg/mL Inject 1 mL intramuscularly once every month. FAMILY HISTORY Problem Relation Age of Onset Cancer Mother ?ovarian ca Hypertension Mother Lipids Mother High Cholesterol, Resolved Osteoporosis Mother Diabetes Mother Heart Father [place] Social History Tobacco Use Smoking status: Never Smokeless tobacco: Never Vaping Use Vaping Use: Never used Substance Use Topics Alcohol use: No Drug use: No Review of Systems Constitutional: Positive for chills. Negative for activity change, appetite change, fatigue and fever. HENT: Positive for ear pain and sore throat. Negative for congestion, drooling, ear discharge, hoarse voice, rhinorrhea, sinus pressure, sinus pain and trouble swallowing. Eyes: Negative for pain, discharge, redness and itching. Respiratory: Positive for cough. Negative for shortness of breath and stridor. Cardiovascular: Negative for chest pain, palpitations and leg swelling. Gastrointestinal: Negative for abdominal pain, diarrhea and vomiting. Musculoskeletal: Negative for arthralgias, back pain, gait problem and neck pain. Skin: Negative for color change and rash. Allergic/Immunologic: Negative for environmental allergies, food allergies and immunocompromised state. Neurological: Negative for dizziness, facial asymmetry and headaches. Hematological: Negative for adenopathy. Does not bruise/bleed easily. Psychiatric/Behavioral: Negative for agitation and behavioral problems. Objective BP 152/88 Pulse 61 Temp 36.2 ?C (97.2 ?F) Resp 18 Wt 61.8 kg (136 lb 3.2 oz) LMP 09/28/2020 SpO2 98% BMI 28.47 kg/m? Physical Exam Vitals and nursing note reviewed. Constitutional: General: She is not in acute distress. Appearance: Normal appearance. She is normal weight. She is not ill-appearing, toxic-appearing or diaphoretic. HENT: Head: Normocephalic and atraumatic. Right Ear: Ear canal and external ear normal. Left Ear: Ear canal and external ear normal. Nose: Nose normal. No congestion or rhinorrhea. Mouth/Throat: Mouth: Mucous membranes are moist. Pharynx: Posterior oropharyngeal erythema (1 + enlarged tonsils bilaterally. Uvula midline. Handling secretions) present. No oropharyngeal exudate. Eyes: General: Right eye: No discharge. Left eye: No discharge. Extraocular Movements: Extraocular movements intact. Conjunctiva/sclera: Conjunctivae normal. Pupils: Pupils are equal, round, and reactive to light. Cardiovascular: Rate and Rhythm: Normal rate and regular rhythm. Pulses: Normal pulses. Heart sounds: Normal heart sounds. No murmur heard. No friction rub. Pulmonary: Effort: Pulmonary effort is normal. No respiratory distress. Breath sounds: Normal breath sounds. No stridor. No wheezing, rhonchi or rales. Chest: Chest wall: No tenderness. Abdominal: General: Abdomen is flat. There is no distension. Palpations: Abdomen is soft. There is no mass. Tenderness: There is no abdominal tenderness. There is no right CVA tenderness, left CVA tenderness, guarding or rebound. Hernia (more content not included)... [facility] 07-05-2023 History of Presen t illness Narrative This note was created using Arkivum. Subjective Blank Bedoya is a 57 year old female. 57 year old female with PMH HTN presents for complaints of illness. Acute onset 3 days ago Started with post nasal drainage. Slight cough +sore throat +popping in ears +eye watering. Denies new fatigue Denies N/V/D + ill contacts Endorses she took a home COVID yesterday that was negative. Home COVID today was negative as well. 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 Presents worried related to strep throat. The history is provided by the patient. No speech/language therapist was used. Sore Throat This is a new problem. The current episode started in the past 7 days. The problem has been unchanged. Neither side of throat is experiencing more pain than the other. There has been no fever. The pain is at a severity of 6/10. The pain is moderate. Associated symptoms include coughing and ear pain. Pertinent negatives include no abdominal pain, congestion, diarrhea, drooling, ear discharge, headaches, hoarse voice, plugged ear sensation, neck pain, shortness of breath, stridor, swollen glands, trouble swallowing or vomiting. She has had exposure to strep. She has had no exposure to mono. She has tried nothing for the symptoms. The treatment provided no relief. PAST MEDICAL HISTORY Diagnosis Date Dysphonia 05/29/2019 HTN (hypertension) PAST SURGICAL HISTORY Procedure Laterality Date COLONOSCOPY SCREENING 2015 NONE ALLERGIES Bees and Seasonal Allergies MEDICATIONS losartan (COZAAR) 25 mg tablet Take 1 tablet by mouth once daily. calcium carbonate/vitamin D3 (CALCIUM 500 + D ORAL) Take by mouth. cyanocobalamin (VITAMIN B-12) 1,000 mcg/mL Inject 1 mL intramuscularly once every month. FAMILY HISTORY Problem Relation Age of Onset Cancer Mother ?ovarian ca Hypertension Mother Lipids Mother High Cholesterol, Resolved Osteoporosis Mother Diabetes Mother Heart Father [place] Social History Tobacco Use Smoking status: Never Smokeless tobacco: Never Vaping Use Vaping Use: Never used Substance Use Topics Alcohol use: No Drug use: No Review of Systems Constitutional: Positive for chills. Negative for activity change, appetite change, fatigue and fever. HENT: Positive for ear pain and sore throat. Negative for congestion, drooling, ear discharge, hoarse voice, rhinorrhea, sinus pressure, sinus pain and trouble swallowing. Eyes: Negative for pain, discharge, redness and itching. Respiratory: Positive for cough. Negative for shortness of breath and stridor. Cardiovascular: Negative for chest pain, palpitations and leg swelling. Gastrointestinal: Negative for abdominal pain, diarrhea and vomiting. Musculoskeletal: Negative for arthralgias, back pain, gait problem and neck pain. Skin: Negative for color change and rash. Allergic/Immunologic: Negative for environmental allergies, food allergies and immunocompromised state. Neurological: Negative for dizziness, facial asymmetry and headaches. Hematological: Negative for adenopathy. Does not bruise/bleed easily. Psychiatric/Behavioral: Negative for agitation and behavioral problems. Objective BP 152/88 Pulse 61 Temp 36.2 C (97.2 F) Resp 18 Wt 61.8 kg (136 lb 3.2 oz) LMP 09/28/2020 SpO2 98% BMI 28.47 kg/m Physical Exam Vitals and nursing note reviewed. Constitutional: General: She is not in acute distress. Appearance: Normal appearance. She is normal weight. She is not ill-appearing, toxic-appearing or diaphoretic. HENT: Head: Normocephalic and atraumatic. Right Ear: Ear canal and external ear normal. Left Ear: Ear canal and external ear normal. Nose: Nose normal. No congestion or rhinorrhea. Mouth/Throat: Mouth: Mucous membranes are moist. Pharynx: Posterior oropharyngeal erythema (1 + enlarged tonsils bilaterally. Uvula midline. Handling secretions) present. No oropharyngeal exudate. Eyes: General: Right eye: No discharge. Left eye: No discharge. Extraocular Movements: Extraocular movements intact. Conjunctiva/sclera: Conjunctivae normal. Pupils: Pupils are equal, round, and reactive to light. Cardiovascular: Rate and Rhythm: Normal rate and regular rhythm. Pulses: Normal pulses. Heart sounds: Normal heart sounds. No murmur heard. No friction rub. Pulmonary: Effort: Pulmonary effort is normal. No respiratory distress. Breath sounds: Normal breath sounds. No stridor. No wheezing, rhonchi or rales. Chest: Chest wall: No tenderness. Abdominal: General: Abdomen is flat. There is no distension. Palpations: Abdomen is soft. There is no mass. Tenderness: There is no abdominal tenderness. There is no right CVA tenderness, left CVA tenderness, guarding or rebound. Hernia: No hernia is present. Musculoskeletal: General: No swelling, tenderness, deformity or signs of injury. Normal range of motion. Cervical back: Normal range of motion and neck supple. No rigidity. Right lower leg: No edema. Left lower leg: No edema. Lymphadenopathy: Cervical: No cervical adenopathy. Skin: General: Skin is warm and dry. Capillary Refill: Capillary refill takes less than 2 seconds. Coloration: Skin is not jaundiced or pale. Findings: No bruising, erythema, lesion or rash. Neurological: General: No focal deficit present. Mental Status: She is alert and oriented to person, place, and time. Cranial Nerves: No cranial nerve deficit. Sensory: No sensory deficit. Motor: No weakness. Coordination: Coordination normal. Gait: Gait normal. Psychiatric: Mood and Affect: Mood normal. Behavior: Behavior normal. Thought Content: Thought content normal. Judgment: Judgment normal. Assessment and Plan ASSESSMENT/PLAN: 1. Upper respiratory tract infection, unspecified type - ICD9: 465.9, ICD10: J06.9 X 3 days No red flags X 2 home COVID negative - Discussed viral etiology and rationale for treatment. - Group A strep molecular testing negative - Symptomatic treatment with prn analgesia - Supportive care with fluids and rest - Patient declines Flu/COVID testing - STREP A MOLECULAR (POC) Sherly Bennett APRN.GUN BARREL FINISHER documented in this encounter [facility] 06-11-2023 Miscellaneous Notes June 13, 2023 PID: [id number] Blank Bedoya [address] [place] [address] Dear Ms. Bedoya, We are pleased to inform you that the results of your recent breast imaging exam on 06/11/2023 are normal. Early detection of cancer is very important. We also understand recommendations regarding breast cancer screening are controversial. Please discuss with your primary care provider which strategy is best for you and whether a mammogram is right for you. Your imaging studies and report will be kept on file at [facility] as part of your permanent medical record and are available for your continuing care. Thank you for allowing us to help in meeting your health care needs. Sincerely, Dr. Velazquez Interpreting Radiologist [facility] (Normal over 40) documented in this encounter [facility] 06-11-2023 Note HNO ID: [id number] Author: Jihan Fajardo Mammo Tech Service: ? Author Type: Bottle Label Inspector Type: Progress Notes Filed: 06/11/2023 8:06 AM Note Text: Radiology Service Progress Note PATIENT NAME: Blank Bedoya DATE OF SERVICE: June 11, 2023 TIME: 7:52 AM PATIENT IDENTITY VERIFICATION COMPLETED USING TWO (2) IDENTIFIERS: Name and Date of confirmed by patient verbally. FALL SCREENING: Has the patient had 2 falls in the last year or 1 fall with injury or currently using an Ambulatory Assistive Device (Walker, Cane, Wheelchair, Crutches, etc.)? No PATIENT GENDER DATA: Female. status: : No status: NO. PATIENT RELEVANT IMPLANT DATA REVIEWED: Not Applicable RADIOLOGY DEPARTMENT: Mammography PERIPHERAL IV DATA: Not applicable SIGNED BY: Jadiel Upton June 11, 2023 7:52 AM [facility] 06-11-2023 History of Presen t illness Narrative Radiology Service Progress Note PATIENT NAME: Blank Bedoya DATE OF SERVICE: June 11, 2023 TIME: 7:52 AM PATIENT IDENTITY VERIFICATION COMPLETED USING TWO (2) IDENTIFIERS: Name and Date of confirmed by patient verbally. FALL SCREENING: Has the patient had 2 falls in the last year or 1 fall with injury or currently using an Ambulatory Assistive Device (Walker, Cane, Wheelchair, Crutches, etc.)? No PATIENT GENDER DATA: Female. status: : No status: NO. PATIENT RELEVANT IMPLANT DATA REVIEWED: Not Applicable RADIOLOGY DEPARTMENT: Mammography PERIPHERAL IV DATA: Not applicable SIGNED BY: Jihan Fajardo [place] [employer] Stella June 11, 2023 7:52 AM documented in this encounter [facility] 06-06-2023 Miscellaneous Notes Pt called and is notified of providers message. Pt voices understanding. Debra Clarke RN Please call patient to let her know this has been sent. Pt called back & asked for a 3-4 day supply of losartan to go to [facility] in [place]. Pharmacy added & Rx pending. Please call pt when Rx has been sent, pt will be waiting at pharmacy before finishing her travel to [place]. Berta Vinson LPN Patient calls and states that she is traveling up to [place] and realized that she forgot her Losartan prescription at home. Patient asking if provider can send prescription to pharmacy in [place]. Patient unsure of the pharmacy. Patient will call back. Pao Cameron RN documented in this encounter [facility] 04-24-2023 History of Presen t illness Narrative Images from the original note were not included. [facility] AT [address] [place] [address] Discharge Notification Patient Name: Blank Bedoya : 1965 Today's Date: 04/24/2023 Patient has not been seen since 02/07/23 at which time patient requested holding treatment until consult with physician. No further contact with patient. Per policy, this patient will be discharged due to inactive file. Thank you for this referral. For any questions on this patient s course of therapy, please call the clinic for clarification. Daniella Velazquez OT documented in this encounter [facility] 02-07-2023 History of Presen t illness Narrative Images from the original note were not included. 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; previous injection 02/2022 with relief, symptoms returned Current pain managed with 400mg Tylenol Precautions/Red Flags: None Patient Preferences: Blank Subjective Feels use of Comfort Cool splint with use of Aspercreasm has been helpful pain usually 03/07, with treatment Compliance with HEP: Yes 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 Strength: Right Left Trial 1 32 lbs 42 lbs Pinch Strength lateral pinch: Right Left 12 lbs 12 lbs ROM: THUMB RIGHT Thumb CMC (nl 45 /60 ) MCP (nl 10 H/60 ) IP (nl 15 H/80 ) Palmar Abduction 40 Extension 5 hyperextension 10 hyperextension Radial Abduction 60 Flexion 55 80 *(Passive values entered only if different than active; otherwise = AROM) LEFT Thumb CMC (nl 45 /60 ) MCP (nl 10 H/60 ) IP (nl 15 H/80 ) Palmar Abduction 60 Extension 0 5 hyperextension Radial Abduction 45 Flexion 58 70 *(Passive values entered only if different than active; otherwise = AROM) Assessment Skilled occupational therapy interventions utilized to improve patient s impairments and work towards established goals. Patient response to treatment: Patient with decreased pain and improved salvager helper strength; continues to report achiness with activity and has expressed interest in consulting Dr. Villarreal for possible injection as he has offered at last visit. Patient with good understanding of presented CMC stabilization and ROM exercises. Patient request holding treatment until consult with Dr. Villarreal. Patient will benefit from continued occupational therapy to strengthen bilateral salvager helper, complete joint protection education and review CMC stabilization exercises The rationale for today s treatment was explained to the patient. Verbal cues were provided for correct form with all exercises. Advised patient to continue with Home Exercise Program (HEP). Goals General/Ortho Patient will be independent with HEP. (Progressing) Start: 01/24/23 Expected End: 03/25/23 Patient will report decreased pain at 2/10 in bilateral thumbs to be able to open packages, manipulate self-care and kitchen tools, write and type. (Progressing) Start: 01/24/23 Expected End: 03/25/23 Patient will stabilize ROM in thumb MCP joints to avoid hyperextension and assist in joint protection (Progressing) Start: 01/24/23 Expected End: 03/25/23 Patient will improve salvager helper/pinch to 35 # right to allow increased package opening and tool use for gardening and kitchen tasks (Progressing) Start: 01/24/23 Expected End: 03/25/23 Patient will integrate joint protection principles in daily self-care, gardening tasks to decrease pain and preserve strength and mobility in bilateral thumbs (Progressing) Start: 01/24/23 Expected End: 03/25/23 Functional Outcome Measure: Patient will improve QuickDash score to 30 or better indicating increased functional use of bilateral thumbs in daily tasks (Progressing) Start: 01/24/23 Expected End: 03/25/23 Plan Plan for next session: strengthening, CMC stabilization, joint protection education Treatment Therapeutic Exercise # of Activities: 2 Therapeutic Exercise Activity 1: thumb ROM for web space stretching Activity 1 Comment: good return demonstration Therapeutic Exercise Activity 2: CMC stablization / joint protection education Activity 2 Comment: patient verbalized good understanding of provided printed material and exercises IASTM Location: bilateral thumbs dorsal , volar and CMC joint Comments: toelrated well, reports imporved flexibility with decreased pain Time Entry Total Treatment Time Start Time: 0830 Stop Time: 0900 Time Calculation (min): 30 min OT Therapeutic Procedures Time Entry Therapeutic Exercise Time Entry: 18 Manual Therapy Time Entry: 10 Daniella Velazquez OT documented in this encounter [facility] 01-24-2023 Note Patient Outreach (IN TMMN) BLANK BEDOYA I ([id number]) 1965 F Date Time Provider Department 01/24/23 FIONA RODRIGES During your visit today, we recorded the following information about you: Allergies As of Date: 01/24/2023 Noted Allergy Reaction BEES 05/29/2006 4 - Hives 12 - Shortness of Breath SEASONAL ALLERGIES 04/16/2017 5 - Intolerance Date Reviewed: 11/13/2022 Reviewed by: Codi Del Cid Ma - Fully Assessed Visit Diagnosis:Encounter for screening mammogram for breast cancer [Z12.31] Order(s):[facility] SCREENING W [facility]MAN [[id number]] Order #: [id number] FUTURE Prescriptions as of 01/29/2023 - losartan (COZAAR) 25 mg tablet Take 1 tablet by mouth once daily. - calcium carbonate/vitamin D3 (CALCIUM 500 + D ORAL) Take by mouth. - cyanocobalamin (VITAMIN B-12) 1,000 mcg/mL Inject 1 mL intramuscularly once every month. Problem List As Of Date 01/24/2023 Noted Resolved Pain in joint, shoulder region [M25.519] 10/05/2014 Essential hypertension [I10] 10/30/2014 Vaginal and cervical prolapse [N81.4] 03/25/2015 Colon cancer screening [Z12.11] 05/18/2016 05/18/2016 Weight gain [R63.5] 11/21/2019 Encounter Status:Closed by ROS REYES on 01/29/23 [facility] 12-15-2022 Miscellaneous Notes POPULATION HEALTH NAVIGATION OUTREACH Action/I 1st call-[facility] and [employer] message for patient regarding ORTHO consult. Patient Identified by Name and : NO Outreach Outcome/Action Unable to reach patient: Left message [employer] message sent Did you use a PCP flex slot to schedule this appointment? No Reason for Outreach Care Gap or Scheduling/Wellness visits Payer: Payor: [employer] / Plan: [employer] CHOICE POS II / Product Type: POS / Care Gap Reviewed:: Specialty Scheduling Reminder: Reminder note to check Health Maintenance for items below Health Maintenance items due: BP CONTROLLED (<130/80) Never done DIABETES SCREEN due on 03/21/2022 MAMMOGRAM due on 12/23/2022 Navigation Signature: Jyoti Bell December 15, 2022 9:26 AM documented in this encounter [facility] 11-30-2022 Miscellaneous Notes Faxed. Please fax the ortho consult as requested Regards, Fiona Rodriges MD documented in this encounter [facility] 11-13-2022 History of Presen t illness Narrative CC: Patient presents with: Physical: Annual exam HPI Blank Bedoya is a 56 year old female who presents today for annual physical exam. Exercise: works out regularly 3-4 times per week with walking. Diet: Watches diet for salt (salty snacks, added salt, processed frozen/canned foods), sugary/sweet snacks, unhealthy fats: Yes Caffeine: not often maybe 1 cup a day Water intake: 6-7 glasses a day. HTN: Ms. Elke indicates that she is feeling well and denies any symptoms referable to elevated blood pressure. Specifically denies headache, chest pain, palpitations, dyspnea, and peripheral edema. Patient denies any side effects of her medication(s) and is compliant with their regimen. She does check BP's away from this office with average BP's in the 120s/80 range. Last 3 Encounter BP Readings: Date: BP: 11/13/2022 142/98 08/22/2022 124/82 05/07/2022 108/68 Fell at end of last July tripping on a side walk and landed on her left knee. Has noticed some swelling and pressure to knee and tightness for the past 6 weeks which has greatly affected how much walking she does. Feels she is walking with her knee pointed to the side at the beginning of her walk but looks down and she is walking normal. This pain and tightness does improve usually at end of the walk. Denies weakness, numbness, decreased ROM, or feeling as if knee is going to give out or lock up. Bilateral hand numbness and tingling that is chronic. Saw [facility] for this and told severe arthritis and had a steroid injection which helped a small amount a few weeks after receiving but states it was very painful and continued with increased pain for a week or two after injection. Does not want to return to [facility] and would like a consult sent to hand specialist Dr. Mooney at [facility]. Denies any new symptoms or weakness, but states because of the pain she is unable to efficiently lift objects. REVIEW OF SYSTEMS General: no fevers, no chills, no night sweats, no recurrent infections, no change in appetite, no change in energy, and no significant changes in weight HEENT: no frequent or significant headaches, no changes in hearing, no visual changes, no nose bleeds, no sinus or nasal problems Respiratory: no cough, no wheezing, no shortness of breath, no hemoptysis Cardiovascular: no chest pain, no chest pressure, no palpitations, and no swelling GI: No nausea, vomiting, or diarrhea : No history of dysuria, frequency or incontinence Musculoskeletal: Negative for joint pain or swelling, back pain or muscle pain outside of what is stated in HPI Skin: Negative for lesions, rash, and itching Psych: PHQ 2 is 0 Endocrine: no fatigue, no weight gain, no weight loss, no cold intolerance, no heat intolerance, no polyuria, no polyphagia, and no polydipsia Neurologic: No headache, weakness, numbness, tingling, dizziness, memory loss, syncope. PAST MEDICAL HISTORY Diagnosis Date Dysphonia 05/29/2019 HTN (hypertension) PAST SURGICAL HISTORY Procedure Laterality Date COLONOSCOPY SCREENING 2015 NONE ALLERGIES Bees and Seasonal Allergies MEDICATIONS calcium carbonate/vitamin D3 (CALCIUM 500 + D ORAL) Take by mouth. losartan (COZAAR) 50 mg tablet Take 0.5 tablets by mouth once daily. cyanocobalamin (VITAMIN B-12) 1,000 mcg/mL Inject 1 mL intramuscularly once every month. (Patient not taking: Reported on 08/22/2022) FAMILY HISTORY Problem Relation Age of Onset Cancer Mother ?ovarian ca Hypertension Mother Lipids Mother High Cholesterol, Resolved Osteoporosis Mother Diabetes Mother Heart Father [place] Social History Tobacco Use Smoking status: Never Smokeless tobacco: Never Vaping Use Vaping Use: Never used Substance Use Topics Alcohol use: No Drug use: No PHYSICAL EXAM BP 142/98 Pulse 76 Temp 36.8 C (98.2 F) (Temporal) Resp 16 Wt 61.2 kg (135 lb) LMP 09/28/2020 SpO2 99% BMI 28.22 kg/m General Appearance: well appearing, in no acute distress, alert Pysch: mood and affect broad and appropriate Skin: Skin color, texture, turgor normal for age; Eyes: conjunctiva pink and moist, no icterus, sclera white, non-injected Neck: Thyroid normal size and symmetric without palpable nodules, No adenopathy Lymph nodes: No cervical lymphadenopathy and No supraclavicular lymphadenopathy Lungs: Lungs clear to auscultation. No wheezing, rhonchi, rales. Heart: RRR without murmur, gallop, or rubs. No ectopy Abdomen: Abdomen soft, non-tender. Bowel sounds normal. No masses, organomegaly Extremities: No deformities, edema, skin discoloration, clubbing or cyanosis. Good capillary refill. Musculoskeletal: Bilateral knee- normal to inspection. Tenderness:none reported, but states area around to sides of left patella feel different and that is where tightness is usually located. Flexion:Limitation: No, Pain:No; Extension:Limitation:No, Pain:No. Laxity: No Neurological: Gait normal. Reflexes normal and symmetric. Sensation grossly intact, speech normal, mental status intact, muscle tone normal, muscle strength normal HEPATITIS B(1 of 3 - 3-dose series) Never done HEPATITIS C SCREENING Never done HIV SCREENING Never done BP CONTROLLED (<130/80) Never done DIABETES SCREEN due on 03/21/2022 DEPRESSION ASSESSMENT due on 10/29/2022 MAMMOGRAM due on 12/23/2022 ANNUAL PCP TEAM CHRONIC DISEASE VISIT due on 08/22/2023 LIPID SCREEN due on 03/21/2024 PAP TESTING due on 12/07/2025 HPV TESTING due on 12/07/2025 COLORECTAL CANCER SCREENING due on 05/18/2026 DTAP,TDAP,TD(2 - Td or Tdap) due on 05/20/2031 INFLUENZA Completed SHINGRIX VACCINE Completed COVID-19 VACCINE Completed ASSESSMENT/PLAN: 1. Annual physical exam - ICD9: V70.0, ICD10: Z00.00 (primary diagnosis) - Counseled on healthy diet and regular exercise - Calcium intake with supplements or by diet of 1000 mg/day for under 50, 0410-8792 mg/day for 50+ - Discussed need and benefit for weight loss. BMI 28.21 kg/(m^2) - Depression screening tool completed and reviewed with patient. Based on score and interview, patient is not at risk for depression and recommended no further intervention at this time. - Follow up for annual exam in one year - CBC + DIFF - COMP METABOLIC PANEL - LIPID PANEL BASIC - HGB A1C 2. Essential hypertension - ICD9: 401.9, ICD10: I10 - good control - Continue current medication(s) - Recommended regular aerobic exercise. - Recommend home blood pressure monitoring, to bring results in on next visit - Goal of BP <130/80 - follow up in 6 months 3. Acute pain of left knee - ICD9: 719.46, ICD10: M25.562 - exam unconcern ing but since result of fall, still having symptoms, and affecting her activity level will xray and have patient see physical therapy. - XR KNEE GENERAL 4V AP BOTH/PA BOTH/LAT/MERC LEFT - CONSULT TO PHYSICAL THERAPY 4. Pain in both hands - ICD9: 729.5, ICD10: M79.641, M79.642 - diagnosis and treatment for osteo arthritis, - consult as previously ordered by PCP faxed as requested for second opinion 5. Family history of diabetes mellitus - ICD9: V18.0, ICD10: Z83.3 - HGB A1C Prescription instructions reviewed with patient as applicable. Potential red flag symptoms discussed with the patient. Reviewed appropriate action plan to take if red flag symptoms occur. Patient agreeable to treatment plan. Anna Ferrari APRN.SEBASTIAN documented in this encounter [facility] 09-28-2022 Miscellaneous Notes Patient notified of results and provider's instructions. Patient verbalizes understanding. Pao Cameron RN ----- Message from Fiona Rodriges MD sent at 09/27/2022 8:25 PM EST ----- Hi blank, Your zio patch was on for 10 days and there were around 10 triggers that were noted but none of them had a rhythm that was concerning, it was mostly the sinus rhythm Over all the test was negative. I hope you are not have any more episodes Regards, Fiona Rodriges MD documented in this encounter [facility] 08-22-2022 History of Presen t illness Narrative Reason for Visit Patient presents with: F/U 6 months Blank Bedoya is a 56 year old female who presents here today for Above Complaints.. Health Maintenance HEPATITIS B(1 of 3 - 3-dose series) HEPATITIS C SCREENING HIV SCREENING DEPRESSION ASSESSMENT DIABETES SCREEN HPI HTN: Compliant with medications. Denies any chest pain, palpitations, or edema. No SOB. Doesn't check BP at home generally. Careful with diet to avoid salt, trying to eat more fruits and vegetables, exercises regularly. Over all has good days but some part of the month she has a few days that make her tired, a little dizzy Sad and low and it usually passes of. Denies palpitations at that time but cant explain the feeling. She does have the ac joint arthritis, some days she is better than the other days on warm days. Colder days are not as problematic. Patient tries to make sure she wears extra layers No problem-specific Assessment & Plan notes found for this encounter. PAST MEDICAL HISTORY Diagnosis Date Dysphonia 05/29/2019 HTN (hypertension) PAST SURGICAL HISTORY Procedure Laterality Date COLONOSCOPY SCREENING 2015 NONE FAMILY HISTORY Problem Relation Age of Onset Cancer Mother ?ovarian ca Hypertension Mother Lipids Mother High Cholesterol, Resolved Osteoporosis Mother Diabetes Mother Heart Father SD Social History Tobacco Use Smoking status: Never Smokeless tobacco: Never Vaping Use Vaping Use: Never used Substance Use Topics Alcohol use: No Drug use: No Past medical history, appointments, medications, allergies reviewed. Pertinent Lab/Diagnostic Studies are reviewed and discussed today Current Outpatient Medications: calcium carbonate/vitamin D3 (CALCIUM 500 + D ORAL) losartan (COZAAR) 50 mg tablet cyanocobalamin (VITAMIN B-12) 1,000 mcg/mL Review of Systems CONSTITUTIONAL: No fevers, chills night sweats, unintended weight loss CARDIOVASCULAR: No chest pain, dyspnea, palpitations, orthopnea, PND, ankle edema. PULM: No dyspnea, unexplained cough. GI: No dysphagia/odynophagia, problematic reflux, constipation, diarrhea, changes in stool habits, hematochezia, melena. : No new urinary complaints, including dysuria, gross hematuria or pyuria. NEURO: No new balance problems, peripheral weakness/paresthesias or numbness of concern. Physical Exam BP 124/82 Pulse 65 Wt 60.3 kg (133 lb) LMP 09/28/2020 SpO2 98% BMI 27.80 kg/m General appearance: Well appearing, alert, in no acute distress, well nourished. Skin: Skin color, texture, turgor normal, no suspicious rashes or lesions Head: Normocephalic, no masses, lesions, tenderness or abnormalities Eyes: Anicteric sclera. Pupils are equally round and reactive to light. Extraocular movements are intact. Lungs: Lungs clear to auscultation. No wheezing, rhonchi, rales Heart: RRR without murmur, gallop, or rubs. Extremities: No deformities, edema, skin discoloration, clubbing or cyanosis. Good capillary refill. ASSESSMENT/PLAN: 1. Essential hypertension - ICD9: 401.9, ICD10: I10 (primary diagnosis) - good control - Recommended regular aerobic exercise. - Recommend home blood pressure monitoring, to bring results in on next visit - Goal of BP <130/80 2. 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 Homehrdad montez are favorable options Will order custom orthotics If pain fails to improve, call the office. documented in this encounter [facility] 05-23-2022 History of Presen t illness Narrative Images from the original note were not included. Consultation requested by Dr. Rodriges for an opinion regarding b/l foot pain. My final recommendations will be communicated back to the requesting physician by way of shared Medical record or letter to requesting physician via US mail. Initial Podiatric Office Visit: Chief Complaint: This 56 year old female who presents with chief complaint:b/l foot pain HPI Patient presents to clinic with complaint of b/l foot pain. Patient experiences stiffening and burning in b/l feet L>R. She feels as though someone is sticking a fork in her foot. She states the pain first started in the right foot. She states that with rest, the right foot pain eased up. She states she developed similar pain on the left foot but with rest, the pain is not subsiding. She complains of a burning type pain, worse when she is walking. The pain is along the first ray extending from the toe to the midfoot. The pain is worse when she goes to apply weight to the left foot. Patient is not currently taking anything for the pain. Patient has purchased new shoes but that has not really helped. She has tried inserts in the past. The inserts have helped with her prior heel pain but the pain in the front of her foot is still very much present. PAIN EVALUATION 05/23/2022 1335 Pain Level: 9 Pain Location: Foot-Left Description: Stabbing;Throbbing Duration Amount of Time: 6 Duration Units: Weeks Frequency: Intermittent Intervention/Comfort measure: Reposition;Relaxation rest, elevation No results found for: HBA1C PCP: Fiona Rodriges MD PAST MEDICAL HISTORY Diagnosis Date Dysphonia 05/29/2019 HTN (hypertension) Current Outpatient Medications Medication Sig calcium carbonate/vitamin D3 (CALCIUM 500 + D ORAL) Take by mouth. losartan (COZAAR) 50 mg tablet Take 0.5 tablets by mouth once daily. cyanocobalamin (VITAMIN B-12) 1,000 mcg/mL Inject 1 mL intramuscularly once every month. No current facility-administered medications for this visit. ALLERGIES Allergen Reactions Bees Hives, Shortness of Breath Seasonal Allergies Intolerance PAST SURGICAL HISTORY Procedure Laterality Date COLONOSCOPY SCREENING 2015 NONE FAMILY HISTORY Problem Relation Age of Onset Cancer Mother ?ovarian ca Hypertension Mother Lipids Mother High Cholesterol, Resolved Osteoporosis Mother Diabetes Mother Heart Father SD Social History Tobacco Use Smoking status: Never Smoker Smokeless tobacco: Never Used Vaping Use Vaping Use: Never used Substance Use Topics Alcohol use: No Drug use: No REVIEW OF SYSTEMS GENERAL: Negative for Malaise, significant weight loss, fever RESPIRATORY: Negative for cough, wheezing and shortness of breath CARDIOVASCULAR: Negative for chest pain, leg swelling and palpitations GI: Negative for abdominal discomfort, blood in stools or black stools and change in bowel habits : Negative for dysuria, frequency and incontinence MUSCULOSKELETAL: Negative for joint pain or swelling, back pain, and muscle pain. SKIN: Negative for lesions, rash, and itching. HEMATOLOGY/LYMPHOLOGY Negative for prolonged bleeding, bruising easily, and swollen nodes. ENDOCRINE: Negative for cold or heat intolerance, polyuria, polydipsia and goiter. NEURO: negative Physical Exam: Constitutional: Pt is a well developed 56 year old female who is alert, oriented and cooperative Eyes: Following during examination. No redness or drainage. Respiratory: RR normal and nonlabored. Even breathing. No evidence of distress or shortness of breath. Psychology: Patient is engaged during conversation. Normal affect and mood. Does not appear depressed or anxious during encounter. Vascular: Dorsalis pedis and posterior tibial pulses palpable as b/l Capillary Fill time < 5 seconds to digits 1-5 b/l Skin temperature warm to warm proximal to distal b/l Hair growth present to digits Neurological: intact light touch/epicritic sensation b/l intact protective sensation no significant neurological deficits Dermatological: Nails 1-5 b/l appear normal. Webspaces clean and dry 1-4 b/l. Skin appears well hydrated and supple. good color, texture, turgor. No open lesions present. No callosities present. Musculoskeletal/Orthopaedic: Patient has pain to palpation of b/l 1st mtpj L>R Foot type is neutral structurally AJ ROM is full with knee extended and flexed 1st MPJ is decreased when loaded and mild pain or crepitus are noted with ROM. MTJ, STJ are full and free of pain and crepitus. +5/5 muscle strength dorsiflexion, plantarflexion, inversion, eversion b/l Radiographs: 3 views left foot ordered May 23, 2022: I have personally reviewed and interpreted these XR myself: There is mild arthritis of left first mtpj with dorsal spurring ASSESSMENT: (M20.22) Hallux rigidus of left foot (primary encounter diagnosis) (M79.672) Left foot pain PLAN: 1. History and physical examination performed. 2. XR reviewed with patient and interpreted today 3. Reviewed xrays. She does have spurring of left 1st mtpj and I suspect she is developing early arthritis of left 1st mtpj 4. Recommend nsaids prn 5. Recommend firm sole shoes 6. Will order custom inserts with saez extension 7. Offered oral steroid but she declined 8. If pain persists, consider injection or surgical intervention 9. F/u prn Viktor Dailey DPM Podiatry [address] [facility] [address] Dept: [phone] Dept AMB ROOMING INTAKE FLOWSHEET DATA Pain Pain Level: 9 Pain Location: Foot-Left Description: Stabbing, Throbbing Duration Amount of Time: 6 Duration Units: Weeks Frequency: Intermittent Intervention/Comfort measure: Reposition, Relaxation (rest, elevation) Patient presents with: Left Foot - New Patient, Pain Patient c/o B/L foot pain, L > R x 6 weeks. No injury. Occurs when she is walking for exercise.Patient has to change the way she walks and rest for pain to get better. Pain located along 1st metatarsal near great toe. documented in this encounter [facility] 05-23-2022 History of Presen t illness Narrative Radiology Service Progress Note PATIENT NAME: Blank Bedoya DATE OF SERVICE: May 23, 2022 TIME: 1:15 PM PATIENT IDENTITY VERIFICATION COMPLETED USING TWO (2) IDENTIFIERS: Name and Date of confirmed by patient verbally. FALL SCREENING: Has the patient had 2 falls in the last year or 1 fall with injury or currently using an Ambulatory Assistive Device (Walker, Cane, Wheelchair, Crutches, etc.)? No PATIENT GENDER DATA: Female. status: : No status: NO. PATIENT RELEVANT IMPLANT DATA REVIEWED: Yes RADIOLOGY DEPARTMENT: General X-ray: Exam(s) Completed: Lower Extremity X-Ray(s): Foot, Left and Wt. Bearing PERIPHERAL IV DATA: Not applicable SIGNED BY: RT Rambo(R) May 23, 2022 1:15 PM documented in this encounter [facility] 05-07-2022 History of Presen t illness Narrative This note was created using be2riter. Subjective Blank Bedoya is a 56 year old female. 56 year old female with PMH HTN presents with illness. Acute onset of symptoms was last night +sore throat +headache +post nasal drip +mild cough Denies accompanying URI sx. Denies SOB or CP Denies abdominal pain. Denies N/V/D Denies skin rash or lesions States that her tested positive for COVID May 01. Denies using homeopathic or OTC medications [employer]. The history is provided by the patient. URI She complains of cough. There is no chest tightness, difficulty breathing, frequent throat clearing, hemoptysis, hoarse voice, shortness of breath, sputum production or wheezing. This is a new problem. The current episode started yesterday. The problem occurs constantly. The problem has been unchanged. Associated symptoms include a fever, headaches, malaise/fatigue, postnasal drip and a sore throat. Pertinent negatives include no appetite change, chest pain, dyspnea on exertion, ear congestion, ear pain, heartburn, myalgias, nasal congestion, orthopnea, PND, rhinorrhea, sneezing, sweats, trouble swallowing or weight loss. Her symptoms are aggravated by nothing. Her symptoms are alleviated by nothing. She reports no improvement on treatment. Risk factors: +exposure to COVID. There is no history of asthma, bronchiectasis, bronchitis, COPD, emphysema or pneumonia. PAST MEDICAL HISTORY Diagnosis Date Dysphonia 05/29/2019 HTN (hypertension) PAST SURGICAL HISTORY Procedure Laterality Date COLONOSCOPY SCREENING 2015 NONE ALLERGIES Bees and Seasonal Allergies MEDICATIONS calcium carbonate/vitamin D3 (CALCIUM 500 + D ORAL) Take by mouth. losartan (COZAAR) 50 mg tablet Take 0.5 tablets by mouth once daily. cyanocobalamin (VITAMIN B-12) 1,000 mcg/mL Inject 1 mL intramuscularly once every month. FAMILY HISTORY Problem Relation Age of Onset Cancer Mother ?ovarian ca Hypertension Mother Lipids Mother High Cholesterol, Resolved Osteoporosis Mother Diabetes Mother Heart Father SD Social History Tobacco Use Smoking status: Never Smoker Smokeless tobacco: Never Used Vaping Use Vaping Use: Never used Substance Use Topics Alcohol use: No Drug use: No Review of Systems Constitutional: Positive for fever and malaise/fatigue. Negative for appetite change and weight loss. HENT: Positive for congestion, postnasal drip and sore throat. Negative for ear pain, hoarse voice, rhinorrhea, sneezing and trouble swallowing. Eyes: Negative for photophobia, pain, discharge, redness, itching and visual disturbance. Respiratory: Positive for cough. Negative for apnea, hemoptysis, sputum production, chest tightness, shortness of breath and wheezing. Cardiovascular: Negative for chest pain, dyspnea on exertion, palpitations, leg swelling and PND. Gastrointestinal: Positive for vomiting. Negative for abdominal pain, diarrhea, heartburn and nausea. Musculoskeletal: Negative for arthralgias, back pain and myalgias. Skin: Negative for pallor, rash and wound. Allergic/Immunologic: Negative for environmental allergies, food allergies and immunocompromised state. Neurological: Positive for headaches. Hematological: Negative for adenopathy. Does not bruise/bleed easily. Psychiatric/Behavioral: Negative for agitation. Objective BP 108/68 Pulse 94 Temp 36.1 C (97 F) Resp 16 Wt 60.3 kg (133 lb) LMP 09/28/2020 SpO2 99% BMI 27.80 kg/m Physical Exam Vitals and nursing note reviewed. Constitutional: General: She is not in acute distress. Appearance: Normal appearance. She is normal weight. She is not ill-appearing, toxic-appearing or diaphoretic. HENT: Head: Normocephalic and atraumatic. Right Ear: Ear canal and external ear normal. Left Ear: Ear canal and external ear normal. Nose: Nose normal. No congestion or rhinorrhea. Mouth/Throat: Mouth: Mucous membranes are moist. Pharynx: Posterior oropharyngeal erythema (mild posterior erythema. Uvula midline) present. No oropharyngeal exudate. Eyes: General: Right eye: No discharge. Left eye: No discharge. Extraocular Movements: Extraocular movements intact. Conjunctiva/sclera: Conjunctivae normal. Pupils: Pupils are equal, round, and reactive to light. Cardiovascular: Rate and Rhythm: Normal rate and regular rhythm. Pulses: Normal pulses. Heart sounds: Normal heart sounds. No murmur heard. No friction rub. Pulmonary: Effort: Pulmonary effort is normal. No respiratory distress. Breath sounds: Normal breath sounds. No stridor. No wheezing, rhonchi or rales. Chest: Chest wall: No tenderness. Abdominal: General: Abdomen is flat. There is no distension. Palpations: Abdomen is soft. There is no mass. Tenderness: There is no abdominal tenderness. There is no right CVA tenderness, left CVA tenderness, guarding or rebound. Hernia: No hernia is present. Musculoskeletal: General: No swelling, tenderness, deformity or signs of injury. Normal range of motion. Cervical back: Normal range of motion and neck supple. No rigidity. Right lower leg: No edema. Left lower leg: No edema. Lymphadenopathy: Cervical: No cervical adenopathy. Skin: General: Skin is warm and dry. Coloration: Skin is not jaundiced or pale. Findings: No bruising, erythema, lesion or rash. Neurological: General: No focal deficit present. Mental Status: She is alert and oriented to person, place, and time. Cranial Nerves: No cranial nerve deficit. Sensory: No sensory deficit. Motor: No weakness. Coordination: Coordination normal. Gait: Gait normal. Psychiatric: Mood and Affect: Mood normal. Behavior: Behavior normal. Thought Content: Thought content normal. Judgment: Judgment normal. Assessment and Plan ASSESSMENT/PLAN: 1. Pharyngitis, unspecified etiology - ICD9: 462, ICD10: J02.9 - suspect viral - Alere Strep Test negative, no culture pending - Discussed supportive care treatment with fluids, rest and analgesia. - The patient may also use OTC cough and cold meds as needed, warm salt water gargles, throat lozenges and/or OTC throat spray as needed and nasal saline gtts and suction prn. - Contagious dz precautions discussed- including considered contagious until on antibiotics for 24 hours - The patient should follow up in 3-5 days if symptoms persist or worsen - Call back if drooling, increased temperature, symptoms of dehydration and/or still sick in one week - STREP A MOLECULAR (POC) - COVID WITH FLUA+B, ROUTINE 2. Suspected COVID-19 virus infection - ICD9: V01.79, ICD10: Z20.822 tested + May 01 Displaying sx Testing pending Instructed patient that if she was positive, she qualifies for Paxlovid, and to reach out to Dr. Nevarez office. Sherly Bennett APRN.SEBASTIAN documented in this encounter [facility] 02-17-2022 History of Presen t illness Narrative Reason for Visit Patient presents with: Established Patient: 6 month follow up Blank Bedoya is a 56 year old female who presents here today for Above Complaints.. Health Maintenance HEPATITIS C SCREENING HIV SCREENING SHINGRIX VACCINE(1 of 2) DEPRESSION SCREENING HPI Down 5 pounds, bp is on the lower side, and sometimes she feels dizzy, tired. She checks her bp at home and it is on the lower. Her lipids are always good, Lld is and hdl is 52, on a lipid that was done a couple months She has been having some trouble grasping in the right hand, it hurst in the thumb joint. No numbness and tingling. A little numbness but she had to start when she picks up on the left side. No problem-specific Assessment & Plan notes found for this encounter. PAST MEDICAL HISTORY Diagnosis Date Dysphonia 05/29/2019 HTN (hypertension) PAST SURGICAL HISTORY Procedure Laterality Date COLONOSCOPY SCREENING 2015 NONE FAMILY HISTORY Problem Relation Age of Onset Cancer Mother ?ovarian ca Hypertension Mother Lipids Mother High Cholesterol, Resolved Osteoporosis Mother Diabetes Mother Heart Father SD Social History Tobacco Use Smoking status: Never Smoker Smokeless tobacco: Never Used Vaping Use Vaping Use: Never used Substance Use Topics Alcohol use: No Drug use: No Past medical history, appointments, medications, allergies reviewed. Pertinent Lab/Diagnostic Studies are reviewed and discussed today Current Outpatient Medications: losartan (COZAAR) 50 mg tablet ergocalciferol 50,000 unit capsule (VITAMIN D2, DRISDOL) cyanocobalamin (VITAMIN B-12) 1,000 mcg/mL Syringe with Needle, Disp, guaiFENesin (MUCINEX) 600 mg 12 hr tablet Review of Systems CONSTITUTIONAL: No fevers, chills night sweats, unintended weight loss CARDIOVASCULAR: No chest pain, dyspnea, palpitations, orthopnea, PND, ankle edema. PULM: No dyspnea, unexplained cough. GI: No dysphagia/odynophagia, problematic reflux, constipation, diarrhea, changes in stool habits, hematochezia, melena. : No new urinary complaints, including dysuria, gross hematuria or pyuria. NEURO: No new balance problems, peripheral weakness/paresthesias or numbness of concern. Physical Exam BP 98/52 (BP Site: Right Arm, BP Position: Sitting, BP Cuff Size: Regular Adult) Pulse 83 Temp 36.8 C (98.3 F) Resp 12 Ht 147.3 cm (4' 10 ) Wt 59.4 kg (131 lb) LMP 09/28/2020 SpO2 100% BMI 27.38 kg/m General appearance: Well appearing, alert, in no acute distress, well nourished. Skin: Skin color, texture, turgor normal, no suspicious rashes or lesions Head: Normocephalic, no masses, lesions, tenderness or abnormalities Eyes: Anicteric sclera. Pupils are equally round and reactive to light. Extraocular movements are intact. Lungs: Lungs clear to auscultation. No wheezing, rhonchi, rales Heart: RRR without murmur, gallop, or rubs. Extension and abduction at the thumb on the right is painful ASSESSMENT/PLAN: 1. Essential hypertension - ICD9: 401.9, ICD10: I10 Decreased her losartan to half. - Recommend home blood pressure monitoring, to bring results in on next visit - Goal of BP <130/80 - LOSARTAN 50 MG TABLET - LIPID PANEL BASIC - CBC + DIFF 2. Osteoarthritis of carpometacarpal (CMC) joint of right thumb, unspecified osteoarthritis type - ICD9: 715.34, ICD10: M18.11 - CONSULT TO ORTHOPAEDICS Fiona Rodriges MD documented in this encounter [facility] documented as of this encounter (statuses as of 02/17/2022) [address]21-2016 History of Past illness Narrative* Problem Noted Date Resolved Date Colon cancer screening 05/18/2016 6 documented as of this encounter (statuses as of 03/31/2022) [facility] History of Past illness Narrative* Problem Noted Date Resolved Date Colon cancer screening 05/18/2016 6 documented as of this encounter (statuses as of 05/07/2022) [facility] History of Past illness Narrative* Problem Noted Date Resolved Date Colon cancer screening 05/18/2016 6 documented as of this encounter (statuses as of 05/23/2022) [facility] History of Past illness Narrative* Problem Noted Date Resolved Date Colon cancer screening 05/18/2016 6 documented as of this encounter (statuses as of 05/24/2022) [facility] History of Past illness Narrative* Problem Noted Date Resolved Date Colon cancer screening 05/18/2016 6 documented as of this encounter (statuses as of 08/11/2022) [address]-2016 History of Past illness Narrative* Problem Noted Date Resolved Date Colon cancer screening 05/18/2016 6 documented as of this encounter (statuses as of 08/22/2022) [address]-2016 History of Past illness Narrative* Problem Noted Date Resolved Date Colon cancer screening 05/18/2016 6 documented as of this encounter (statuses as of 09/04/2022) [address]-2016 History of Past illness Narrative* Problem Noted Date Resolved Date Colon cancer screening 05/18/2016 6 documented as of this encounter (statuses as of 09/28/2022) [address]-2016 History of Past illness Narrative* Problem Noted Date Resolved Date Colon cancer screening 05/18/2016 6 documented as of this encounter (statuses as of 11/15/2022) [address]-2016 History of Past illness Narrative* Problem Noted Date Resolved Date Colon cancer screening 05/18/2016 6 documented as of this encounter (statuses as of 11/17/2022) [address]-2016 History of Past illness Narrative* Problem Noted Date Resolved Date Colon cancer screening 05/18/2016 6 documented as of this encounter (statuses as of 11/30/2022) [address]-2016 History of Past illness Narrative* Problem Noted Date Resolved Date Colon cancer screening 05/18/2016 6 documented as of this encounter (statuses as of 12/15/2022) [address]-2016 History of Past illness Narrative* Problem Noted Date Resolved Date Colon cancer screening 05/18/2016 6 documented as of this encounter (statuses as of 01/29/2023) [address]-2016 History of Past illness Narrative* Problem Noted Date Diagnosed Date Resolved Date Colon cancer screening 05/18/201605/18 documented as of this encounter (statuses as of 06/06/2023) [address]-2016 History of Past illness Narrative* Problem Noted Date Diagnosed Date Resolved Date Colon cancer screening 05/18/201605/18 documented as of this encounter (statuses as of 06/14/2023) [address]-2016 History of Past illness Narrative* Problem Noted Date Diagnosed Date Resolved Date Colon cancer screening 05/18/201605/18 documented as of this encounter (statuses as of 07/05/2023) [address]-2016 History of Past illness Narrative* Problem Noted Date Diagnosed Date Resolved Date Colon cancer screening 05/18/201605/18 documented as of this encounter (statuses as of 07/06/2023) [facility] History of Past illness Narrative* Problem Noted Date Diagnosed Date Resolved Date Colon cancer screening 05/18/201605/18 documented as of this encounter (statuses as of 08/15/2023) [facility] History of Past illness Narrative* Problem Noted Date Diagnosed Date Resolved Date Colon cancer screening 05/18/201605/18 documented as of this encounter (statuses as of 09/02/2023) [facility] History of Past illness Narrative* Problem Noted Date Diagnosed Date Resolved Date Colon cancer screening 05/18/201605/18 documented as of this encounter (statuses as of 10/02/2023) [facility] History of Past illness Narrative* Problem Noted Date Diagnosed Date Resolved Date Colon cancer screening 05/18/201605/18 documented as of this encounter (statuses as of 10/04/2023) [facility] History of Past illness Narrative* Problem Noted Date Diagnosed Date Resolved Date Colon cancer screening 05/18/201605/18 documented as of this encounter (statuses as of 10/16/2023) [facility] Diagnosis Essential hypertension- Primary Unspecified essential hypertension Osteoarthritis of carpometacarpal (CMC) joint of right thumb, unspecified osteoarthritis type [facility] Diagnosis Hip pain, right- Primary Pain in joint, pelvic region and thigh Chronic right shoulder pain Pain in joint, shoulder region [facility] Diagnosis Pharyngitis, unspecified etiology- Primary Suspected COVID-19 virus infection [facility] Diagnosis Hallux rigidus of left foot- Primary Hallux rigidus Left foot pain Pain in limb [facility] Diagnosis Pain in left foot Pain in limb [facility] Diagnosis Essential hypertension Unspecified essential hypertension [facility] Diagnosis Essential hypertension- Primary Unspecified essential hypertension Dizzy spells Dizziness and giddiness Screening for HIV (human immunodeficiency virus) Special screening examination for other specified viral diseases Special screening examination for viral disease Special screening examination for unspecified viral disease documented in this encounter [facility] note* Diagnosis Annual physical exam- Primary Routine general medical examination at a health care facility Essential hypertension Unspecified essential hypertension Acute pain of left knee Pain in both hands Family history of diabetes mellitus documented in this encounter [facility] note* Diagnosis Pain in both hands- Primary documented in this encounter [facility] note* Diagnosis Encounter for screening mammogram for breast cancer documented in this encounter [facility] note* Diagnosis Arthritis of carpometacarpal (CMC) joint of both thumbs- Primary documented in this encounter [facility] note* Diagnosis Upper respiratory tract infection, unspecified type- Primary documented in this encounter [facility] note* Diagnosis Encounter for gynecological examination without abnormal finding- Primary Routine gynecological examination Encounter for screening mammogram for malignant neoplasm of breast Other screening mammogram Dense breasts Inconclusive mammogram documented in this encounter [facility] note* Diagnosis Encounter for screening mammogram for breast cancer documented in this encounter [facility] note* Diagnosis Dizziness- Primary Dizziness and giddiness documented in this encounter [facility] note* Diagnosis Essential hypertension- Primary Unspecified essential hypertension Dizzy spells Dizziness and giddiness Snoring Other dyspnea and respiratory abnormality Annual physical exam Routine general medical examination at a health care facility Lipid screening Screening for lipoid disorders documented in this encounter [facility] for referral (narrative)* Diagnostic Procedure Only (Routine) - Pending Review Specialty Diagnoses / Procedures Referred By Dave pina Referred To Contact XR IMAGING Diagnoses Chronic right shoulder pain Procedures XR SHOULDER GENERAL 3V OR MORE AP/TRUE AP/OTHER RIGHT RADEX SHOULDER COMPLETE MINIMUM 2 VIEWS Fiona Rodriges MD [address] [place] [address] Xr Imaging Referral ID Status Reason Start Date Expiration Date Visits Requested Visits Authorized [id number] Pending Review Auto-Generat ed Referral 03/31/2022 04/30/2023 1 1 * Diagnostic Procedure Only (Routine) - Pending Review Specialty Diagnoses / Procedures Referred By Contac t Referred To Contact XR IMAGING Diagnoses Hip pain, right Procedures XR HIP GENERAL 3V PELV/AP/LAT RIGHT RADEX HIP UNILATERAL WITH PELVIS 2-3 VIEWS Fiona Rodriges MD [address] [place] [address] Xr Imaging Referral ID Status Reason Start Date Expiration Date Visits Requested Visits Authorized [id number] Pending Review Auto-Generat ed Referral 03/31/2022 04/30/2023 1 1 [facility] for referral (narrative)* Diagnostic Procedure Only (Routine) - Closed Specialty Diagnoses / Procedures Referred By Paulac t Referred To Contact XR IMAGING Diagnoses Pain in left foot Procedures XR FOOT GENERAL 3V AP/LAT/OBL LEFT RADEX FOOT COMPLETE MINIMUM 3 VIEWS Viktor Dailey [address] [place] [address] Xr Imaging Referral ID Status Reason Start Date Expiration Date V isits Requested Visits Authorized [id number] Closed Auto-Generate d Referral 05/19/2022 06/18/2023 1 1 [facility] for referral (narrative)* Diagnostic Procedure Only (Routine) - Pending Review Specialty Diagnoses / Procedures Referred By Dave pina Referred To Contact BR IMAGING Diagnoses Encounter for screening mammogram for breast cancer Procedures ISA SCREENING W OLMAN SCREENING DIGITAL BREAST TOMOSYNTHESIS BI SCREENING MAMMOGRAPHY BI 2-VIEW BREAST INC CAD Fiona Rodriges MD [address] [place] [address] [facility] [address] [place] [address] Referral ID Status Reason Start Date Expiration Date Visits Requested Visits Authorized [id number] Pending Review Auto-Generat ed Referral 01/24/2023 02/23/2024 1 1 [facility] for referral (narrative)* Diagnostic Procedure Only (Routine) - Pending Review Specialty Diagnoses / Procedures Referred By Dave t Referred To Contact BR IMAGING Diagnoses Encounter for screening mammogram for malignant neoplasm of breast Dense breasts Procedures ISA SCREENING W OLMAN SCREENING DIGITAL BREAST TOMOSYNTHESIS BI SCREENING MAMMOGRAPHY BI 2-VIEW BREAST INC Atif Hatfield MD [address] [place] [address] [facility] [address] [place] [address] Referral ID Status Reason Start Date Expiration Date Visits Requested Visits Authorized [id number] Pending Review Auto-Generat ed Referral 07/06/2023 08/04/2024 1 1 [facility] for referral (narrative)* Diagnostic Procedure Only (Routine) - Closed Specialty Diagnoses / Procedures Referred By Contac t Referred To Contact BR IMAGING Diagnoses Encounter for screening mammogram for breast cancer Procedures ISA SCREENING W OLMAN SCREENING DIGITAL BREAST TOMOSYNTHESIS BI SCREENING MAMMOGRAPHY BI 2-VIEW BREAST INC Fiona Servin MD [address] [place] [address] [facility] [address] [place] [id number] Referral ID Status Reason Start Date Expiration Date V isits Requested Visits Authorized [id number] Closed Auto-Generate d Referral 01/24/2023 02/23/2024 1 1 [facility] for referral (narrative)* Diagnostic Procedure Only (Routine) - Pending Review Specialty Diagnoses / Procedures Referred By Dave pina Referred To [facility] Diagnoses Essential hypertension Snoring Procedures HOME SLEEP APNEA TEST (HSAT) SLEEP STD AIRFLOW HRT RATE&O2 SAT EFFORT Anna Robledo APRN.CNP [address] [place] [address] [facility] [address] [place] [address] Referral ID Status Reason Start Date Expiration Date Visits Requested Visits Authorized [id number] Pending Review Auto-Generat ed Referral 10/04/2023 10/03/2024 1 1 [facility] for visit Narrative* Diagnostic Procedure Only (Routine) - Closed Specialty Diagnoses / Procedures Referred By Contac t Referred To Contact XR IMAGING Diagnoses Pain in left foot Procedures XR FOOT GENERAL 3V AP/LAT/OBL LEFT RADEX FOOT COMPLETE MINIMUM 3 VIEWS Viktor [address] [place] [address] Xr Imaging Referral ID Status Reason Start Date Expiration Date V isits Requested Visits Authorized [id number] Closed Auto-Generate d Referral 05/19/2022 06/18/2023 1 1 [facility]* Diagnostic Procedure Only (Routine) - Closed Specialty Diagnoses / Procedures Referred By Contac t Referred To Contact BR IMAGING Diagnoses Encounter for screening mammogram for breast cancer Procedures ISA SCREENING W OLMAN SCREENING DIGITAL BREAST TOMOSYNTHESIS BI SCREENING MAMMOGRAPHY BI 2-VIEW BREAST INC CAD Fiona Rodriges MD [address] [place] [address] [facility] [address] [place] [address] Referral ID Status Reason Start Date Expiration Date V isits Requested Visits Authorized [id number] Closed Auto-Generate d Referral 01/24/2023 02/23/2024 1 1 [facility] Reason for Referral Specialty Diagnoses / Procedures Referred By Paulac t Referred To Contact Orthopedics Diagnoses Osteoarthritis of carpometacarpal (CMC) joint of right thumb, unspecified osteoarthritis type Procedures CONSULT TO ORTHOPAEDICS OFFICE/OUTPATIENT [facility] MDM 60-74 MINUTES Fiona Rodriges MD [address] [place] [address] Referral ID Status Reason Start Date Expiration Date Visits Requested Visits Authorized [id number] Pending Review PCP Requested Referral 02/17/2022 02/17/2023 1 1 Specialty Diagnoses / Procedures Referred By Contac t Referred To Contact [facility] Diagnoses Acute pain of left knee Procedures CONSULT TO PHYSICAL THERAPY PHYSICAL THERAPY EVALUATION HIGH COMPLEX 45 MINS 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, 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 [address] [place] [address] [facility] [address] [place] [address] Referral ID Status Reason Start Date Expiration Date V isits Requested Visits Authorized [id number] Closed Auto-Generate d Referral 11/13/2022 11/13/2023 1 1 Specialty Diagnoses / Procedures Referred By Contac t Referred To Contact XR IMAGING Diagnoses Acute pain of left knee Procedures XR KNEE GENERAL 4V AP BOTH/PA BOTH/LAT/MERC LEFT RADIOLOGIC EXAM KNEE COMPLETE 4/MORE VIEWS Anna Ferrari APRN.SEBASTIAN [address] [place] [address] Xr Imaging Referral ID Status Reason Start Date Expiration Date V isits Requested Visits Authorized [id number] Closed Auto-Generate d Referral 11/13/2022 12/13/2023 1 1 Specialty Diagnoses / Procedures Referred By Contac t Referred To Contact Orthopedics Diagnoses Pain in both hands Procedures CONSULT TO ORTHOPAEDICS OFFICE/OUTPATIENT [facility] 60-74 MINUTES Fiona Rodriges MD [address] [place] [address] Referral ID Status Reason Start Date Expiration Date Visits Requested Visits Authorized [id number] Pending Review PCP Requested Referral 11/29/2022 11/29/2023 1 1 Advance Directives No Advanced Directives Records FoundDocuments on File Type Date Recorded Patient [employer] Former Expl anation Advance Directive(s) 05/18/2016 2:34 PM Documents on File Type Date Recorded Patient [employer] Former Expl anation Advance Directive(s) 05/18/2016 2:34 PM Health Concerns Infection Onset Date Last Indicated Resolved Time COVID-19 Rule-Out 05/07/2022 05/07/2022 Summary Purpose Family History No Family History Records FoundNo Family History Records Found Additional Source Comments Source Comments (unrecognize d section and content) In the event this informatio n is protected by the Federal Confidentiality of Alcohol and Drug Abuse Patient Records regulations: The Federal rules restrict any use of the information to criminally investigate or prosecute any alcohol or drug abuse patient.[facility] the event this information is protected by the Federal Confidentiality of Alcohol and Drug Abuse Patient Records regulations: The Federal rules restrict any use of the information to criminally investigate or prosecute any alcohol or drug abuse patient.[facility] the event this information is protected by the Federal Confidentiality of Alcohol and Drug Abuse Patient Records regulations: The Federal rules restrict any use of the information to criminally investigate or prosecute any alcohol or drug abuse patient.[facility] the event this information is protected by the Federal Confidentiality of Alcohol and Drug Abuse Patient Records regulations: The Federal rules restrict any use of the information to criminally investigate or prosecute any alcohol or drug abuse patient.[facility] the event this information is protected by the Federal Confidentiality of Alcohol and Drug Abuse Patient Records regulations: The Federal rules restrict any use of the information to criminally investigate or prosecute any alcohol or drug abuse patient.[facility] the event this information is protected by the Federal Confidentiality of Alcohol and Drug Abuse Patient Records regulations: The Federal rules restrict any use of the information to criminally investigate or prosecute any alcohol or drug abuse patient.[facility] the event this information is protected by the Federal Confidentiality of Alcohol and Drug Abuse Patient Records regulations: The Federal rules restrict any use of the information to criminally investigate or prosecute any alcohol or drug abuse patient.[facility] the event this information is protected by the Federal Confidentiality of Alcohol and Drug Abuse Patient Records regulations: The Federal rules restrict any use of the information to criminally investigate or prosecute any alcohol or drug abuse patient.[facility] the event this information is protected by the Federal Confidentiality of Alcohol and Drug Abuse Patient Records regulations: The Federal rules restrict any use of the information to criminally investigate or prosecute any alcohol or drug abuse patient.[facility] the event this information is protected by the Federal Confidentiality of Alcohol and Drug Abuse Patient Records regulations: The Federal rules restrict any use of the information to criminally investigate or prosecute any alcohol or drug abuse patient.[facility] the event this information is protected by the Federal Confidentiality of Alcohol and Drug Abuse Patient Records regulations: The Federal rules restrict any use of the information to criminally investigate or prosecute any alcohol or drug abuse patient.[facility] the event this information is protected by the Federal Confidentiality of Alcohol and Drug Abuse Patient Records regulations: The Federal rules restrict any use of the information to criminally investigate or prosecute any alcohol or drug abuse patient.[facility] the event this information is protected by the Federal Confidentiality of Alcohol and Drug Abuse Patient Records regulations: The Federal rules restrict any use of the information to criminally investigate or prosecute any alcohol or drug abuse patient.[facility] the event this information is protected by the Federal Confidentiality of Alcohol and Drug Abuse Patient Records regulations: The Federal rules restrict any use of the information to criminally investigate or prosecute any alcohol or drug abuse patient.[facility] the event this information is protected by the Federal Confidentiality of Alcohol and Drug Abuse Patient Records regulations: The Federal rules restrict any use of the information to criminally investigate or prosecute any alcohol or drug abuse patient.[facility] the event this information is protected by the Federal Confidentiality of Alcohol and Drug Abuse Patient Records regulations: The Federal rules restrict any use of the information to criminally investigate or prosecute any alcohol or drug abuse patient.[facility] the event this information is protected by the Federal Confidentiality of Alcohol and Drug Abuse Patient Records regulations: The Federal rules restrict any use of the information to criminally investigate or prosecute any alcohol or drug abuse patient.[facility] the event this information is protected by the Federal Confidentiality of Alcohol and Drug Abuse Patient Records regulations: The Federal rules restrict any use of the information to criminally investigate or prosecute any alcohol or drug abuse patient.[facility] the event this information is protected by the Federal Confidentiality of Alcohol and Drug Abuse Patient Records regulations: The Federal rules restrict any use of the information to criminally investigate or prosecute any alcohol or drug abuse patient.[facility] the event this information is protected by the Federal Confidentiality of Alcohol and Drug Abuse Patient Records regulations: The Federal rules restrict any use of the information to criminally investigate or prosecute any alcohol or drug abuse patient.[facility] the event this information is protected by the Federal Confidentiality of Alcohol and Drug Abuse Patient Records regulations: The Federal rules restrict any use of the information to criminally investigate or prosecute any alcohol or drug abuse patient.[facility] the event this information is protected by the Federal Confidentiality of Alcohol and Drug Abuse Patient Records regulations: The Federal rules restrict any use of the information to criminally investigate or prosecute any alcohol or drug abuse patient.[facility] the event this information is protected by the Federal Confidentiality of Alcohol and Drug Abuse Patient Records regulations: The Federal rules restrict any use of the information to criminally investigate or prosecute any alcohol or drug abuse patient.[facility] Reason for Visit (unrecogniz ed section and content) Reason Comments Sore Throat headache x last nigh t, + covid Reason Comments New Patient Pain Specialty Diagnoses / Procedures Referred By Dave pina Referred To Contact Podiatry Diagnoses Left foot pain Procedures CONSULT TO PODIATRY OFFICE/OUTPATIENT NEW HIGH MDM 60-74 MINUTES Fiona Rodriges MD [address] [place] [address] Referral ID Status Reason Start Date Expiration Date Visits Requested Visits Authorized [id number] Pending Review PCP Requested Referral 05/06/2022 05/06/2023 1 1 Reason Comments F/U 6 months Reason Comments Results Reason Comments Physical Annual exam Reason Comments Appointment Reason Comments OT Treatment Specialty Diagnoses / Procedures Referred By Dave pina Referred To Contact Occupational Therapy Diagnoses Arthritis of carpometacarpal (CMC) joint of both thumbs Procedures MO OFFICE/OUTPATIENT NEW HIGH MDM 60-74 MINUTES Dianne Villarreal MD [address] [facility] [address] [place] [address] [facility] [address] [place] [address] Referral ID Status Reason Start Date Expiration Date Visits Requested Visits Authorized [id number] Authorized Eval and Treat 01/01/2023 01/02/2024 30 30 Reason Comments OT Discharge Reason Onset Date Comments Refill Request 06/06/2023 Reason Comments Sore Throat GORDON x3 days Reason Onset Date Comments Yearly Exam 07/06/2023 Reason Comments Acute Visit BP issues Care Teams (unrecognized sec tion and content) 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 Start Date End Date Fiona Rodriges MD [address] [place] [address] PCP - General Internal Medicine 03/17/14 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 Start Date End Date Fiona Rodriges MD [address] [place] [address] PCP - General Internal Medicine 03/17/14 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 Start Date End Date Fiona Rodriges MD [address] [place] [address] PCP - General Internal Medicine 03/17/14 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 Start Date End Date Fiona Rodriges MD [address] [place] [address] PCP - General Internal Medicine 03/17/14 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 Start Date End Date Fiona Rodriges MD [address] [place] [address] PCP - General Internal Medicine 03/17/14 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 Start Date End Date Fiona Rodriges MD [address] [place] [address] PCP - General Internal Medicine 03/17/14 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 Start Date End Date Fiona Rodriges MD [address] [place] [address] PCP - General Internal Medicine 03/17/14 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 Start Date End Date Fiona Rodriges MD [address] [place] [address] PCP - General Internal Medicine 03/17/14 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 Start Date End Date Fiona Rodriges MD [address] [place] [address] PCP - General Internal Medicine 03/17/14 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 Start Date End Date Fiona Rodriges MD [address] [place] [address] PCP - General Internal Medicine 03/17/14 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 Start Date End Date Fiona Rodriges MD [address] [place] [address] PCP - General Internal Medicine 03/17/14 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 Start Date End Date Fiona Rodriges MD [address] [place] [address] PCP - General Internal Medicine 03/17/14 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 Start Date End Date Fiona Rodriges MD [address] [place] [address] PCP - General Internal Medicine 01/01/23 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 Start Date End Date Fiona Rodriges MD [address] [place] [address] PCP - General Internal Medicine 01/01/23 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 Start Date End Date Fiona Rodriges MD [address] [facility] [place] [address] PCP - General Internal Medicine 03/17/14 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 Start Date End Date Fiona Rodriges MD [address] [place] [address] PCP - General Internal Medicine 03/17/14 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 Start Date End Date Fiona Rodriges MD [address] [place] [address] PCP - General Internal Medicine 03/17/14 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 Start Date End Date Fiona Rodriges MD [address] [place] [address] PCP - General Internal Medicine 03/17/14 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 Start Date End Date Fiona Rodriges MD [address] [place] [address] PCP - General Internal Medicine 03/17/14 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 Start Date End Date Fiona Rodriges MD [address] [place] [address] PCP - General Internal Medicine 03/17/14 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 This clinical summary was aggregated from multiple sources. Caution should be exercised in using it in the provision of clinical care. This summary normalizes information from multiple sources, and as a consequence, information in this document may materially change the coding, format and clinical context of patient data. In addition, data may be omitted in some cases. CLINICAL DECISIONS SHOULD BE BASED ON THE PRIMARY CLINICAL RECORDS. Amanda Huff DBA [employer] provides no warranty or guarantee of the accuracy or completeness of information in this document.
== END | disposition home or self-care (01) ==
LOC: SL 20:01
PROVIDERS: PCP Internal Medicine; Referring Provider Nurse Practitioner; Visit Provider Nurse Practitioner
DX: I10 Essential (primary) hypertension (principal); R06.83 Snoring; G47.36 Sleep related hypoventilation in conditions classified elsewhere
CPT/HCPCS: 95810

== ENCOUNTER → 2024-02-06 | Outpatient (CLI) | payer OTHER, SELFPAY | END | disposition home or self-care (01) | LOC: SL 08:35 | PROVIDERS: PCP Internal Medicine; Visit Provider Nurse Practitioner | DX: Z00.00 Encounter for general adult medical examination without abnormal findings (principal) ==

== ENCOUNTER 2025-05-13 13:00 | Outpatient (RCR) | payer OTHER, SELFPAY ==
--- NOTE | 2025-05-05 11:59 | HP.PTEVAL ---
Patient's Visit Information Visit Information Visit Information: RYAN JENSEN is a 59 year old F referred to Physical Therapy by Dr. Carlton Sanabria DO with a diagnosis of L knee patella femoral pain. Date of Evaluation: 05/05/25 Physical Therapist: Ildefonso Easley, PT, ATC Visit Plan Frequency: 1x/Week Duration: 1-2 weeks Plan: Issue and instruct pt on HEP of core strengthening, L LE strengthening (hip abd and VMO), and L LE stretching (HS's and IT band) Subjective Subjective: Pt reports her L knee has been sore for a couple years. 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 Pt notes she also has another brace she wears at times that helps more if she is performing a lot of activity. Pt notes she has also had a recent cortisone injection which really didn't help. Pt reports her pain is limiting at times, but she almost didn't come today because its not severe. Pt reports most of her pain is on the inferior region of her patella. Pt denies any tingling or numbness at this time. Pt reports she lives in a two story house which has stairs she has to negotiate. Pt notes she is still able to perform that activity, but just has to move more slowly. Pt denies sleep difficulty at this time secondary to L knee pain. 0/10 pain in L knee at rest, 6/10 pain at worst (fitzgerald she goes for a walk and forgets her brace) Pain L knee pain: Pain Intensity (Out of 10): 0 Pain Intensity Range: 6 Objective Objective: Neuro: B LE sensation is WNL to light touch. Palpation: No pain with palpation. Significant crepitus with AROM ROM: L knee 0-130 ; R knee 0-130 degrees MMT: L knee flex= 20, ext= 33 #F; R knee flex= 23, ext= 31 #F Special testing: Pos McConnels sign Balance/Special Test Scores Lower Extremity Functional Score: 65 Goals Goal 1:: Pt will be I with HEP after 1 follow up visit Goal Time Frame: 1 Week Rehabilitation Potential Physical Therapy Diagnosis: Pt has L knee pain and intolerance for prolonged ambulation secondary to L knee PFS Rehabilitation Potential: Good Anticipated Interventions Patient/Client Instruction: Educate patient on: Condition and Plan of Care For the Purpose of:: To improve self management Therapeutic Exercise to Include: Strength training, Endurance training, Flexibilty training, Active ROM and Dynamic Lumbar Stabilization For the Purpose of:: To decrease pain, To increase ROM and To improve muscle performance and motor function Text: Thank you for the opportunity to evaluate your patient. For Medicare and Medicare HMO plans, please review the plan of care and approve it. It will need to be FAXED BACK to us at [phone] for Medicare purposes. For Medicare only, by signing this I certify the plan of care. Please let me know if there are questions or concerns regarding this plan of care. Physician Signature: Date:
== END 2025-05-13 19:00 | disposition home or self-care (01) ==
LOC: PT 13:00
PROVIDERS: PCP Internal Medicine; Referring Provider Orthopaedic Surgery; Visit Provider Orthopaedic Surgery
DX: M22.2X2 Patellofemoral disorders, left knee (principal); M22.42 Chondromalacia patellae, left knee
CPT/HCPCS: 97110; 97161

== ENCOUNTER 2025-07-07 08:30 | Outpatient (RCR) | payer OTHER, SELFPAY ==
--- NOTE | 2025-06-24 09:04 | HP.PTEVAL_ITS ---
Patient's Visit Information Visit Information Visit Information: RYAN JENSEN is a 59 year old F referred to Physical Therapy by Dr. Fiona Castillo MD with a diagnosis of DDD. Date of Evaluation: 06/24/25 Physical Therapist: Ildefonso Easley, PT, ATC Visit Plan Frequency: 2x /Week Duration: 1 Week Plan: Issue and instruct pt on HEP over 2-3 visits of neutral spine strengthening and core stab ex's Subjective Subjective: Pt reports having midline LBP chronically. Pt notes if she sits in a soft chair, she experiences increased LBP. Pt notes if she sits in a rigid chair, or just watches her posture, she has no pain. Pt reports she has had recent xrays which revealed DDD. Pt also notices increased pain for a couple days when she experiences high stress situations. Pt reports occasional tingling and numbness in her B LE's, but that hasnt happened for a long time. Pt reports occasional sleep difficulty at this time secondary to pain. LBP is rated at 3/10 while sitting here at rest, 9/10 at worst. Pt reports she is still able to perform all normal daily activities even when she has pain as she is able to power through it. Pain LBP: Pain Intensity (Out of 10): 3 Pain Intensity Range: 9 Objective Objective: Neuro: B LE sensation is WNL to light touch. MMT: B LE's are grossly 4/5 throughout when compared bilaterally ROM: Pt has full ROM in all planes of the lumbar spine. Minor discomfort with extension at endrange. Repeated movements: RFIS 10x2 worse. SAVANNAH 10x2 NE. Prone prop progression NE Balance/Special Test Scores Oswestry Low Back Score: 11 Goals Goal 1:: Pt will be I with HEP Goal Time Frame: 1 Week Rehabilitation Potential Physical Therapy Diagnosis: Pt has LBP and difficulty with ambulation secondary to postural syndrome of the L/S Rehabilitation Potential: Good Anticipated Interventions Patient/Client Instruction: Educate patient on: Condition and Plan of Care For the Purpose of:: To improve self management Therapeutic Exercise to Include: Strength training, Endurance training, Body mechanics, Postural training and Dynamic Lumbar Stabilization For the Purpose of:: To decrease pain, To increase ROM and To improve muscle performance and motor function Text: Thank you for the opportunity to evaluate your patient. For Medicare and Medicare HMO plans, please review the plan of care and approve it. It will need to be FAXED BACK to us at [phone] for Medicare purposes. For Medicare only, by signing this I certify the plan of care. Please let me know if there are questions or concerns regarding this plan of care. Physician Signature: Date:
--- NOTE | 2025-07-07 09:57 | HP.PTDCSUM ---
Discharge Summary D/C summary: It has been my pleasure to treat RYAN JENSEN referred by Dr. Fiona Castillo MD, with the diagnosis of DDD for a total of 3 visit(s). Discharge Date: Please see the following information for a summary of their discharge status. Subjective Subjective: I have good days and bad days. Pain LBP: Pain Intensity (Out of 10): 4 Objective Objective/Function: Pt is now I with HEP Goals Goal 1:: Pt will be I with HEP Plan Plan: Discharge to HEP D/C Information d/c sentence: If there are questions or concerns regarding this patient's physical therapy, please feel free to call me at [phone]. Thank you for the referral of this patient. Sincerely, Ildefonso Easley, PT, ATC Balance/Gait/Functional tests Balance/Special Test Scores Oswestry Low Back Score: 11
== END 2025-07-07 19:00 | disposition home or self-care (01) ==
LOC: PT 08:30
PROVIDERS: PCP Internal Medicine; Referring Provider Internal Medicine; Visit Provider Internal Medicine
DX: M54.50 Low back pain, unspecified (principal); M50.30 Other cervical disc degeneration, unspecified cervical region; G89.29 Other chronic pain
CPT/HCPCS: 97110; 97161